=== PATIENT | female | born 1960 | race Caucasian/White ===

== ENCOUNTER → 2018-07-31 10:17 | Outpatient (CLI) | payer BC, SELFPAY ==
[2018-07-31 10:46] LABS: Basophils % 0.7 % (0.1-2.0); Eosinophils # 0.1 K/mm3 (0.0-0.4); Eosinophils % 2.1 % (0.1-12.0); Hematocrit 42.6 % (37.0-47.0); Hemoglobin 14.1 g/dL (12.2-16.2); Lymphocytes # 1.7 K/mm3 (0.7-4.5); Lymphocytes % 31.8 % (10-50); Mean Corpuscular HGB Conc 33.1 g/dL (31.8-35.4); Mean Corpuscular Volume 90.8 fl (81-99); Mean Platelet Volume 8.9 fl (7.4-10.4); Monocytes # 0.3 K/mm3 (0.1-1.0); Monocytes % 5.3 % (1.7-9.3); Neutrophils # 3.2 K/mm3 (1.8-7.8); Neutrophils % 60.1 % (37.0-80.0); Platelet Count 247 K/mm3 (142-424); Red Blood Count 4.69 M/mm3 (4.20-5.40); Red Cell Distribution Width 13.4 % (11.5-17.5); White Blood Count 5.4 K/mm3 (4.8-10.8)
[2018-07-31 11:39] LABS: Alanine Aminotransferase 41 U/L (12-78); Albumin Level 4.2 gm/dL (3.4-5.0); Albumin/Globulin Ratio 1.2 (1.1-1.8); Alkaline Phosphatase 95 U/L (46-116); Anion Gap 14.5 mEq/L (5-15); Aspartate Amino Transferase 23 U/L (15-37); Bilirubin,Total 0.5 mg/dL (0.2-1.0); Blood Urea Nitrogen 13 mg/dL (7-18); Calcium 9.3 mg/dL (8.5-10.1); Carbon Dioxide 31 mmol/L (21.0-32.0); Chloride 101 mmol/L (98-107); Cholesterol 240 mg/dL (140-200); Creatinine,Serum 0.67 mg/dL (0.55-1.02); Estimated Glomerular Filt Rate 90 ml/min (>60); GFR (African American) 109 ML/MIN (>60); Globulin 3.6 gm/dl (1.3-3.2); Glucose 104 mg/dL (74-106); HDL Cholesterol 40 mg/dL (29-89); LDL Cholesterol 151 mg/dL (0-130); Potassium 3.5 mmoL/L (3.5-5.1); Sodium 143 mmol/L (136-145); Thyroid Stimulating Hormone 0.53 uIU/ml (0.358-3.740); Total Protein,Serum 7.8 gm/dL (6.4-8.2); Triglycerides 246 mg/dL (30-200); VLDL Cholesterol 49 mg/dL (0-40)
[2018-08-01 15:36] LABS: Vitamin D 25 Hydroxy 65.6 ng/mL (30.0-100.0)
== END ==
PROVIDERS: Visit Provider Nurse Practitioner Family
DX: R53.83 Other fatigue (principal)
CPT/HCPCS: 36415; 80053; 80061; 82652; 84443; 85025

== ENCOUNTER → 2018-08-10 11:16 | Outpatient (CLI) | payer BC, SELFPAY ==
--- NOTE | 2018-08-10 11:22 | NM_ITS ---
History and Indications: Hypertension, hyperlipidemia, palpitations, fatigue and abnormal EKG Procedure: Patient exercised on Bradly protocol 8 minutes, resting heart rate was 60 bpm resting blood pressure 166/90, with exercise maximum heart rate achieved was 48 bpm which is greater than 85% of the maximum predicted heart rate and a blood pressure was 196/99. Test was started due to shortness of breath and fatigue patient denied any complained of chest pain. Patient has good exercise capacity achieved 10.1mets of workload on treadmill, the blood pressure response to exercise was adequate. Electrocardiogram: Ostomy electrocardiogram showed sinus rhythm nonspecific ST-T changes, with exercise excessive baseline plaque seen, less than 1.[address] segment depression noted from the baseline EKG. The EKG portion of the exercise Myoview is nondiagnostic baseline EKG. Cardiac stress and resting SPECT images: Cardiac stress and resting SPECT images were obtained using technetium 99 Myoview 31.8 mCi stress and 9.7 mCi at rest. Gated SPECT further analysis of segmental wall motion and calculation of the ejection fraction also done. Cardiac stress and resting SPECT images show uniform myocardial activity without segmental perfusion abnormality, computer derived ejection fraction is over 65% with no regional wall motion abnormality, right ventricle is normal size and contractility. Conclusion: 1. The EKG portion of the exercise Myoview is nondiagnostic, patient has good exercise capacity achieved 10.1mets of workload on treadmill, the blood pressure response to exercise was adequate, there was no exercise-induced chest discomfort. 2. Thickened and son reversible ischemia seen, computer derived ejection fraction is over 65% with no regional wall motion abnormality, right ventricle is normal size and contractility.
--- NOTE | 2018-08-10 11:22 | CA_ITS ---
PROCEDURE: 2-D M-mode and color Doppler study INDICATIONS FOR THE TEST: Chest pain COPD Heart Murmur Tobacco Smoking Palpitations Fatigue Syncope Edema+ Hypertension+Diabetes Mellitus Rheumatic Fever SOB AVALOS Obesity Hyperlipidemia+ Family History HD Additional History abn ekg PATIENT INFORMATION HEIGHT:60 WEIGHT:159 GENDER: Female B/P:170/79 2-D/M-MODE INTERPRETATION: 2-D MEASUREMENTS OBSERVED VALUES IN CMS Right Ventricular Dimension (RVDd) 1.9 Interventricular Septum (Thickness)(IVsd) 1.2 Left Ventricular Internal Dimensions(LVIDd) 4.3 Left Ventricular Posterior Wall (Thickness)(LVPWd) 0.6 Aortic Root 2.2 Aortic Cusp Separation 1.5 Left Atrial Dimensions (LAD) 3.3 2D 1. Left atrium is mildly enlarged, left ventricle is normal size, mild concentric left ventricular hypertrophy, visually estimated ejection fraction 55% with no regional wall motion abnormality. 2. The right atrium and right ventricle are normal size and contractility. 3. The aortic, mitral and tricuspid valvular grossly normal. 4. The pulmonic valve is poorly visualized. 5. Trivial pericardial effusion noted. DOPPLER INTERROGATION: Doppler interrogation of the aortic, mitral and tricuspid valve reveals presence of mild mitral and tricuspid regurgitation, tricuspid regurgitation jet velocity is inadequate for calculation of the right ventricular systolic pressure, grade 1 diastolic dysfunction seen without tissue Doppler evidence of raised left atrial pressure. CONCLUSION: 1. Mildly enlarged left atrium, normal left ventricular size, mild concentric left ventricular hypertrophy, visually estimated ejection fraction 55% with no regional wall motion abnormality, grade 1 diastolic dysfunction seen without tissue Doppler evidence of raised left atrial pressure. 2. Mild mitral and tricuspid regurgitation 3. Trivial pericardial effusion noted.
--- NOTE | 2018-08-10 14:11 | HMH.ITSHM ---
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 [asa bisoprolol lazix levothyroxine ]
== END ==
PROVIDERS: PCP Emergency Medicine; Visit Provider Internal Medicine
DX: R60.9 Edema, unspecified (principal)
CPT/HCPCS: 78452; 93017; 93306; A9502

== ENCOUNTER → 2018-09-22 12:44 | Outpatient (CLI) | payer BC, SELFPAY ==
[2018-09-22 17:04] LABS: Alanine Aminotransferase 58 U/L (12-78); Albumin Level 4.2 gm/dL (3.4-5.0); Alkaline Phosphatase 94 U/L (46-116); Anion Gap 13.7 mEq/L (5-15); Aspartate Amino Transferase 33 U/L (15-37); Bilirubin,Direct 0.2 mg/dL (0.0-0.2); Bilirubin,Indirect 0.4 mg/dL (0.0-0.9); Bilirubin,Total 0.6 mg/dL (0.2-1.0); Blood Urea Nitrogen 17 mg/dL (7-18); Calcium 9.5 mg/dL (8.5-10.1); Carbon Dioxide 29 mmol/L (21.0-32.0); Chloride 103 mmol/L (98-107); Cholesterol 176 mg/dL (140-200); Creatinine,Serum 0.77 mg/dL (0.55-1.02); Estimated Glomerular Filt Rate 77 ml/min (>60); GFR (African American) 93 ML/MIN (>60); Glucose 93 mg/dL (74-106); HDL Cholesterol 44 mg/dL (29-89); LDL Cholesterol 96 mg/dL (0-130); Potassium 4.7 mmoL/L (3.5-5.1); Sodium 141 mmol/L (136-145); Total Protein,Serum 7.7 gm/dL (6.4-8.2); Triglycerides 182 mg/dL (30-200); VLDL Cholesterol 36 mg/dL (0-40)
== END ==
PROVIDERS: Visit Provider Urology
DX: I10 Essential (primary) hypertension (principal); E78.2 Mixed hyperlipidemia; I51.9 Heart disease, unspecified; R53.1 Weakness; R53.83 Other fatigue; R60.0 Localized edema; R94.31 Abnormal electrocardiogram [ECG] [EKG]
CPT/HCPCS: 36415; 80048; 80061; 80076

== ENCOUNTER → 2018-11-16 13:29 | Outpatient (CLI) | payer BC, SELFPAY ==
[2018-11-16 14:14] LABS: Chol/HDL Ratio 3.4 (1-3.5); Cholesterol 150 mg/dL (140-200); HDL Cholesterol 44 mg/dL (29-89); LDL Cholesterol 80 mg/dL (0-130); Thyroid Stimulating Hormone 0.15 uIU/ml (0.358-3.740); Triglycerides 130 mg/dL (30-200); VLDL Cholesterol 26 mg/dL (0-40)
[2018-11-18 03:45] LABS: Vitamin D 25 Hydroxy 52.7 ng/mL (30.0-100.0)
== END ==
PROVIDERS: Visit Provider Nurse Practitioner Family
DX: E07.9 Disorder of thyroid, unspecified (principal)
CPT/HCPCS: 80061; 82652; 84443

== ENCOUNTER → 2019-01-18 13:20 | Outpatient (CLI) | payer BC, SELFPAY ==
[2019-01-18 14:01] LABS: Thyroid Stimulating Hormone 1.71 uIU/ml (0.358-3.740)
== END ==
PROVIDERS: Visit Provider Nurse Practitioner Family
DX: E07.9 Disorder of thyroid, unspecified (principal)
CPT/HCPCS: 84443

== ENCOUNTER → 2019-04-18 11:42 | Outpatient (CLI) | payer BC, SELFPAY ==
[2019-04-18 15:14] LABS: Anion Gap 12.6 mEq/L (5-15); Blood Urea Nitrogen 20 mg/dL (7-18); Calcium 9.5 mg/dL (8.5-10.1); Carbon Dioxide 28 mmol/L (21.0-32.0); Chloride 105 mmol/L (98-107); Creatinine,Serum 0.72 mg/dL (0.55-1.02); Estimated Glomerular Filt Rate 83 ml/min (>60); GFR (African American) 100 ML/MIN (>60); Glucose 97 mg/dL (74-106); Potassium 4.6 mmoL/L (3.5-5.1); Sodium 141 mmol/L (136-145)
[2019-04-18 15:46] LABS: Alanine Aminotransferase 43 U/L (12-78); Albumin Level 4.1 gm/dL (3.4-5.0); Alkaline Phosphatase 113 U/L (46-116); Aspartate Amino Transferase 20 U/L (15-37); Bilirubin,Direct 0.1 mg/dL (0.0-0.2); Bilirubin,Indirect 0.4 mg/dL (0.0-0.9); Bilirubin,Total 0.5 mg/dL (0.2-1.0); Chol/HDL Ratio 4.3 (1-3.5); Cholesterol 178 mg/dL (140-200); HDL Cholesterol 41 mg/dL (29-89); LDL Cholesterol 91 mg/dL (0-130); Total Protein,Serum 7.5 gm/dL (6.4-8.2); Triglycerides 229 mg/dL (30-200); VLDL Cholesterol 46 mg/dL (0-40)
== END ==
PROVIDERS: Physician Assistant; Visit Provider Nurse Practitioner Family
DX: E78.5 Hyperlipidemia, unspecified (principal); I10 Essential (primary) hypertension
CPT/HCPCS: 36415; 80048; 80061; 80076

== ENCOUNTER → 2019-08-16 11:05 | Outpatient (CLI) | payer BC, SELFPAY ==
--- NOTE | 2019-08-16 11:09 | XR_ITS ---
PROCEDURE: XR HAND LT MIN 3V CLINICAL INDICATION: pain COMPARISON: No exams were available for comparison FINDINGS: No fracture or dislocation. No lytic or blastic change. There is normal mineralization. There are mild osteoarthritic changes at the 1st metacarpal-carpal joint. Mild osteoarthritis also at the DIP joint of the 2nd finger. Other findings:None. IMPRESSION: Mild osteoarthritis, no acute finding Dictated by: Alexis Downs MD 08/16/2019 16:10 Electronically signed by Alexis Downs MD in [place] 08/16/2019 16:10
--- NOTE | 2019-08-16 11:09 | XR_ITS ---
PROCEDURE: XR HAND RT MIN 3V CLINICAL INDICATION: pain COMPARISON: No exams were available for comparison FINDINGS: No fracture or dislocation. No lytic or blastic change. There is normal mineralization. Mild osteoarthritic change 1st metacarpal-carpal joint Other findings:None. IMPRESSION: Mild osteoarthritis 1st metacarpal-carpal joint otherwise negative Dictated by: Alexis Downs MD 08/16/2019 16:11 Electronically signed by Alexis Downs MD in [place] 08/16/2019 16:11
[2019-08-16 18:09] LABS: Basophils % 0.9 % (0.1-2.0); Eosinophils # 0.2 K/mm3 (0.0-0.4); Eosinophils % 3.5 % (0.1-12.0); Hematocrit 40.4 % (37.0-47.0); Hemoglobin 12.9 g/dL (12.2-16.2); Lymphocytes # 1.9 K/mm3 (0.7-4.5); Lymphocytes % 43.4 % (10-50); Mean Corpuscular HGB Conc 31.8 g/dL (31.8-35.4); Mean Corpuscular Hemoglobin 30.5 pg (27.0-31.2); Mean Platelet Volume 11.1 fl (7.4-10.4); Monocytes # 0.3 K/mm3 (0.1-1.0); Monocytes % 5.7 % (1.7-9.3); Neutrophils % 46.6 % (37.0-80.0); Platelet Count 217 K/mm3 (142-424); Red Blood Count 4.21 M/mm3 (4.20-5.40); White Blood Count 4.3 K/mm3 (4.8-10.8)
[2019-08-16 18:53] LABS: Alanine Aminotransferase 32 U/L (12-78); Albumin Level 3.9 gm/dL (3.4-5.0); Albumin/Globulin Ratio 1.2 (1.1-1.8); Alkaline Phosphatase 95 U/L (46-116); Anion Gap 16.1 mEq/L (5-15); Aspartate Amino Transferase 19 U/L (15-37); Bilirubin,Total 0.5 mg/dL (0.2-1.0); Blood Urea Nitrogen 19 mg/dL (7-18); Calcium 8.8 mg/dL (8.5-10.1); Carbon Dioxide 26 mmol/L (21.0-32.0); Chloride 107 mmol/L (98-107); Chol/HDL Ratio 3.8 (1-3.5); Cholesterol 163 mg/dL (140-200); Estimated Glomerular Filt Rate 73 ml/min (>60); GFR (African American) 89 ML/MIN (>60); Globulin 3.2 gm/dl (1.3-3.2); Glucose 94 mg/dL (74-106); HDL Cholesterol 43 mg/dL (29-89); LDL Cholesterol 78 mg/dL (0-130); Potassium 4.1 mmoL/L (3.5-5.1); Sodium 145 mmol/L (136-145); T4 (Thyroxine) 9.9 ug/dl (4.7-13.3); Thyroid Stimulating Hormone 1.79 uIU/ml (0.358-3.740); Total Protein,Serum 7.1 gm/dL (6.4-8.2); Triglycerides 212 mg/dL (30-200); VLDL Cholesterol 42 mg/dL (0-40)
[2019-08-18 10:19] LABS: Vitamin D 25 Hydroxy 50.2 ng/mL (30.0-100.0)
== END ==
PROVIDERS: PCP Emergency Medicine; Visit Provider Nurse Practitioner Family
DX: M25.50 Pain in unspecified joint (principal); E03.9 Hypothyroidism, unspecified
CPT/HCPCS: 73130; 80053; 80061; 82652; 84436; 84443; 85025

== ENCOUNTER → 2020-07-21 13:01 | Outpatient (CLI) | payer BC, SELFPAY ==
--- NOTE | 2020-07-21 13:07 | XR_ITS ---
PROCEDURE: XR KNEE LT 4V CLINICAL INDICATION: Left knee pain COMPARISON: No exams were available for comparison FINDINGS: No fracture or dislocation. No lytic or blastic change. There is normal mineralization. Minimal osteoarthritic changes medial compartment and patellofemoral joint. Other findings:None. IMPRESSION: Minimal osteoarthritis Dictated by: Alexis Downs MD 07/21/2020 16:01 Alexis Downs MD in [place] 07/21/2020 16:01
== END ==
PROVIDERS: PCP Nurse Practitioner Family; Visit Provider Orthopaedic Surgery
DX: M25.562 Pain in left knee (principal)
CPT/HCPCS: 73564

== ENCOUNTER → 2020-07-25 14:26 | Outpatient (CLI) | payer BC, SELFPAY ==
--- NOTE | 2020-07-25 14:26 | MR_ITS ---
PROCEDURE: MR KNEE LT WO CON CLINICAL INDICATION: Left knee pain Medial left knee pain with swelling COMPARISON: CR XR KNEE LT 4V from 07/21/2020 TECHNIQUE: Routine multiplanar multi echo sequences are performed without gadolinium enhancement. FINDINGS: Cruciate ligaments, collateral ligaments patellar tendon, and quadriceps tendon appear intact. No evidence of meniscal tear. There is trace knee joint effusion with a a Gagnon's cyst present measuring 3.6 1.3 cm. There are minimal osteoarthritic changes of the medial compartment and patellofemoral joint. There is trace knee joint effusion. IMPRESSION: 1. No internal derangement apparent. 2. Minimal osteoarthritic change with knee joint effusion and Gagnon's cyst. Dictated by: Alexis Downs MD 07/28/2020 11:45 Alexis Downs MD in [place] 07/28/2020 11:45
== END ==
PROVIDERS: PCP Emergency Medicine; Visit Provider Orthopaedic Surgery
DX: M25.562 Pain in left knee (principal)
CPT/HCPCS: 73721

== ENCOUNTER → 2020-08-13 14:13 | Outpatient (POV) | payer BC, SELFPAY | DX: Z00.00 Encounter for general adult medical examination without abnormal findings (principal) ==

== ENCOUNTER → 2020-08-18 12:42 | Outpatient (CLI) | payer BC, SELFPAY ==
--- NOTE | 2020-08-18 12:47 | XR_ITS ---
PROCEDURE: XR SHOULDER RT MIN 2V CLINICAL INDICATION: RT shoulder pain Shoulder pain COMPARISON: No exams were available for comparison FINDINGS: No fracture or dislocation. No lytic or blastic change. There is normal mineralization. There is hypertrophic change along the inferior aspect of the a chromium causing subacromial stenosis. Minimal osteoarthritic changes are present at the glenohumeral joint. The AC joint has an unremarkable appearance. Other findings:None. IMPRESSION: Mild degenerative changes with subacromial stenosis Dictated by: Alexis Downs MD 08/18/2020 14:19 Alexis Downs MD in [place] 08/18/2020 14:19
== END ==
PROVIDERS: PCP Nurse Practitioner Family; Visit Provider Orthopaedic Surgery
DX: M25.511 Pain in right shoulder (principal)
CPT/HCPCS: 73030

== ENCOUNTER → 2020-12-01 09:03 | Outpatient (CLI) | payer BC, SELFPAY ==
--- NOTE | 2020-12-01 09:18 | XR_ITS ---
PROCEDURE: XR HAND RT MIN 3V CLINICAL INDICATION: RT hand pain COMPARISON: DX XR HAND LT MIN 3V from 08/16/2019 DX XR HAND RT MIN 3V from 08/16/2019 FINDINGS: No fracture or dislocation. Mild osteopenia is noted. Early degenerative changes with minor osteophyte formation, predominantly proximal and distal interphalangeal joints noted. Degenerative changes of the 1st CMC joint with subchondral cystic changes and sclerosis. Other findings:No significant soft tissue abnormality. IMPRESSION: No acute abnormality. Early osteoarthritis as described above. Dictated by: Gayatri Amaral 12/01/2020 09:46 Gayatri Amaral in [place] 12/01/2020 09:46
== END ==
PROVIDERS: PCP Emergency Medicine; Visit Provider Orthopaedic Surgery
DX: M79.641 Pain in right hand (principal)
CPT/HCPCS: 73130

== ENCOUNTER → 2021-05-06 10:57 | Outpatient (CLI) | payer BC, SELFPAY | PROVIDERS: PCP Emergency Medicine; Visit Provider Urology | DX: R00.2 Palpitations (principal); I10 Essential (primary) hypertension; E78.5 Hyperlipidemia, unspecified | CPT/HCPCS: 93270 ==

== ENCOUNTER → 2021-05-13 13:15 | Outpatient (CLI) | payer BC, SELFPAY ==
--- NOTE | 2021-05-13 13:18 | CA_ITS ---
APPROVED REPORT EXAM: Comprehensive 2D, Doppler, and color-flow Echocardiogram Bone Process Operator: Georgiana Carrera RVT Ht: 5 ft 1 in Wt: 168lbs BSA: 1.75 BP: 166/93 mmHg Indications: SOA,EDEMA,DD,ABN EKG TDS 2D Dimensions LVOT 1.81 cm (M/F) 1.5-2.5 LA Volume 28.20 mL LA Volume Index 16.11 mL/m2 (M/F) 16-34 M-Mode Dimensions RVDd 2.04 cm (0.9-2.6) LA Diam 3.73 cm (1.9-4.0) LVDd 4.83 cm (3.5-5.7) Ao Diam 2.33 cm (2.0-3.7) LVDs 2.79 cm (3.5-5.7) IVSd 0.72 cm (0.6-1.1) PWd 0.54 cm (0.6-1.1) EF (Teich) 73.10% FS 42.20% EDV (Teich) 109.10 mL TAPSE 1.62 (<1.7) ESV (Teich) 29.30 mL LV Diastology E Decel Time 150.00 (160-240 msec) E/A Ratio 0.8 MED E' 10.50 (< 7 cm/sec) E'/MED E' Ratio 7.90 (>14) LAT E' 8.10 (<10 cm/sec) E/LAT E' Ratio 10.23 (>14) Mitral Valve MV E Max Jose Carlos. 83.00 (40-130 cm/s) MV A Velocity 106.00 (40-130 cm/s) E/A Ratio 0.78 MV Decel. Time 150.00 (160-240 ms) MV PHT 44.00 ms Pulmonary Valve PV Peak Velocity 93.00 (50-150 cm/s) Tricuspid Valve TR P. Velocity 294.00 cm/s RAP Estimate 10.00 mmHg RVSP 44.60 mmHg Left Ventricle Left atrium is mildly enlarged, left ventricle is normal size, mild concentric left ventricular hypertrophy, visually estimated ejection fraction 55% with no regional wall motion abnormality, grade 1 diastolic dysfunction seen without tissue Doppler evidence of raise left atrial pressure. Right Ventricle Right atrium and right ventricle normal mildly enlarged with normal contractility. Aortic Valve Aortic valve is minimally thickened and fibrosed, there is no aortic stenosis or aortic insufficiency. Mitral Valve Mitral valve is grossly normal, there is trace mitral regurgitation. Tricuspid Valve Tricuspid grossly normal, there is trace tricuspid regurgitation, calculated right ventricular systolic pressure 34 mmHg. Pulmonic Valve Pulmonic valve is poorly visualized. Great Vessels Aortic root is normal size. Pericardium No significant pericardial effusion noted. Conclusion 1. Mild biatrial enlargement, normal left ventricular size, mild concentric left ventricular hypertrophy, visually estimated ejection fraction 55% with no regional wall motion abnormality, grade 1 diastolic dysfunction seen without tissue Doppler evidence of raise left atrial pressure. 2. Mildly enlarged right ventricle with normal contractility. 3. Trace mitral and tricuspid regurgitation, calculated right ventricular systolic pressure 34 mmHg. 4. No significant pericardial effusion noted. Electronically signed by : Chuck Cuevas MD 05/14/2021 15:09:25
== END ==
PROVIDERS: PCP Emergency Medicine; Visit Provider Urology
DX: R00.2 Palpitations (principal); R94.31 Abnormal electrocardiogram [ECG] [EKG]; I10 Essential (primary) hypertension; E78.5 Hyperlipidemia, unspecified
CPT/HCPCS: 93306

== ENCOUNTER 2021-07-23 11:07 | Emergency (ER) | payer BC, SELFPAY ==
[2021-07-23] VITALS (12 sets, daily range): BP systolic 122–163; BP diastolic 66–116; PULSE 74–97; RESP 16–18; TEMP 36.6; O2SAT 91–100; BMI 30.9
--- NOTE | 2021-07-23 | MR_ITS ---
PROCEDURE: MR HEAD/BRAIN WO CON CLINICAL INDICATION: VERTIGO COMPARISON: No exams were available for comparison TECHNIQUE: Routine multiplanar multi echo sequences are performed without gadolinium enhancement. FINDINGS: No midline shift, mass effect, intracranial hemorrhage, or hydrocephalus. The cerebellopontine angles, cerebellum, and brainstem have an unremarkable appearance. There are scattered small T2 white matter hyperintensities which are nonspecific most commonly seen with microangiopathic changes. The pituitary, optic chiasm, corpus callosum, and craniocervical junction have an unremarkable appearance. No mastoid effusion or sinus air-fluid level. IMPRESSION: No acute intracranial findings. Scattered T2 white matter hyperintensities most commonly seen with ischemic gliotic change from small vessel disease. Differential diagnosis includes demyelinating process however the pattern is not typical for that finding. Please correlate with clinical parameters. Dictated by: Alexis Downs MD 07/23/2021 15:55 Alexis Downs MD in [place] 07/23/2021 15:55
--- NOTE | 2021-07-23 11:21 | HMH.EDGENADL ---
ED Disposition Clinical Impression: Vertigo, Positional lightheadedness Disposition: Home, Self-Care Condition on Discharge: Fair Instructions: Vertigo Additional Instructions: You have been evaluated for positional lightheadedness and vertigo. MRI of the brain is reassuring, but it does show a few abnormalities. Small vessel ischemic changes, possible demyelinating process. Please follow-up with your primary care doctor, Dr. Vasquez. Take meclizine as needed for dizziness. Stay hydrated. Take all other medications as prescribed. Follow-up with a neurologist. Return to the emergency department for any new or worsening symptoms, vision changes, speech difficulty, numbness, weakness, tingling of your arms or legs. Prescriptions: Meclizine HCl [Meclizine 25mg Tab] 25 mg PO Q6 PRN #20 tab PRN Reason: Vertigo Transmission Status: Pending to [id number] Referrals: Dean Vasquez MD [Primary Care Provider] - Margaret Acosta MD [Staff Physician] - Time of Disposition: 16:34 - Critical Care Critical Care Time: No Attestation: On 07/23/21, the high probability of a clinically significant, sudden or life threatening deterioration of the following system(s) required my full and direct attention, intervention and personal management. The time I documented below is in addition to time spent performing reported procedures but includes the following listed in this critical care notation. Medical Decision Making - Medical Records Medical records reviewed: Yes: I reviewed the patient's medical records. - Dariel Inquiry Pt receiving controlled substance: No Vital Signs: 07/23/21 11:07 07/23/21 11:30 07/23/21 12:01 Temperature 97.8 F Temperature Source Oral Pulse Rate 86 88 Pulse Rate [Left Radial] 92 H Respiratory Rate 18 Blood Pressure 141/72 H 123/73 Blood Pressure [Right Arm] 163/87 H Blood Pressure Mean [Right Arm] 112 Blood Pressure Source [Right Arm] Automatic Cuff Blood Pressure Position [Right Arm] Sitting 02 Sat by Pulse Oximetry 100 92 L 91 L Oxygen Delivery Method Room Air 07/23/21 12:30 07/23/21 13:00 07/23/21 13:30 Temperature Temperature Source Pulse Rate 93 H 97 H 94 H Pulse Rate [Left Radial] Respiratory Rate Blood Pressure 133/78 147/70 H 123/69 Blood Pressure [Right Arm] Blood Pressure Mean [Right Arm] Blood Pressure Source [Right Arm] Blood Pressure Position [Right Arm] 02 Sat by Pulse Oximetry 95 95 94 L Oxygen Delivery Method 07/23/21 14:00 07/23/21 15:15 07/23/21 15:45 Temperature Temperature Source Pulse Rate 86 86 74 Pulse Rate [Left Radial] Respiratory Rate Blood Pressure 132/72 122/66 126/69 Blood Pressure [Right Arm] Blood Pressure Mean [Right Arm] Blood Pressure Source [Right Arm] Blood Pressure Position [Right Arm] 02 Sat by Pulse Oximetry 98 96 98 Oxygen Delivery Method - Lab Data Lab Results 07/23/21 11:05: WBC 3.6 L, RBC 4.33, Hgb 13.5, Hct 39.9, MCV 92.4, MCH 31.3 H, MCHC 33.9, RDW 13.1, Plt Count 228, MPV 9.9, Neut % (Auto) 46.0, Lymph % (Auto) 39.5, Mcminn % (Auto) 9.3, Eos % (Auto) 3.8, Baso % (Auto) 1.5, Neut # (Auto) 1.7 L, Lymph # (Auto) 1.4, Mcminn # (Auto) 0.3, Eos # (Auto) 0.1, Baso # (Auto) 0.1 07/23/21 11:05: Sodium 139, Potassium 3.7, Chloride 104, Carbon Dioxide 25, Anion Gap 13.7, BUN 17, Creatinine 0.60, Estimated GFR 101, Est GFR ( Amer) 123, Glucose 139 H, Calcium 9.6, Total Bilirubin 0.3, AST 42 H, ALT 37, Alkaline Phosphatase 91, Total Protein 7.7, Albumin 4.5, Globulin 3.2, Albumin/Globulin Ratio 1.4 Result diagrams: 07/23/21 11:05 07/23/21 11:05 Orders (Tests/Meds): ED MEDICATIONS Generic Name Dose Route Start Last Admin Trade Name Freq PRN Reason Stop Dose Admin Sodium Chloride 10 ml 07/23/21 11:20 Sodium Chloride 0.9% 10ml Vial IV 08/22/21 11:19 NEEDED PRN to Dilute Lorazepam inj Discontinued Medications Generic N
[2021-07-23 11:26] LABS: Basophils # 0.1 K/mm3 (0-0.2); Basophils % 1.5 % (0.1-2.0); Eosinophils # 0.1 K/mm3 (0.0-0.4); Eosinophils % 3.8 % (0.1-12.0); Hematocrit 39.9 % (37.0-47.0); Hemoglobin 13.5 g/dL (12.2-16.2); Lymphocytes # 1.4 K/mm3 (0.7-4.5); Lymphocytes % 39.5 % (10-50); Mean Corpuscular HGB Conc 33.9 g/dL (31.8-35.4); Mean Corpuscular Hemoglobin 31.3 pg (27.0-31.2); Mean Corpuscular Volume 92.4 fl (81-99); Mean Platelet Volume 9.9 fl (7.4-10.4); Monocytes # 0.3 K/mm3 (0.1-1.0); Monocytes % 9.3 % (1.7-9.3); Neutrophils # 1.7 K/mm3 (1.8-7.8); Platelet Count 228 K/mm3 (142-424); Red Blood Count 4.33 M/mm3 (4.20-5.40); Red Cell Distribution Width 13.1 % (11.5-17.5); White Blood Count 3.6 K/mm3 (4.8-10.8)
[2021-07-23 11:28] LABS: Chloride 104 mmol/L (98-107); Potassium 3.7 mmoL/L (3.5-5.1); Sodium 139 mmol/L (136-145)
[2021-07-23 11:30] LABS: Blood Urea Nitrogen 17 mg/dl (7-17); Estimated Glomerular Filt Rate 101 ml/min (>60); GFR (African American) 123 ML/MIN (>60)
[2021-07-23 11:31] LABS: Alanine Aminotransferase 37 U/L (12-78); Albumin Level 4.5 g/dl (3.5-5.0); Albumin/Globulin Ratio 1.4 (1.1-1.8); Alkaline Phosphatase 91 U/L (38-126); Anion Gap 13.7 mEq/L (5-15); Aspartate Amino Transferase 42 U/L (14-36); Bilirubin,Total 0.3 mg/dl (0.2-1.3); Calcium 9.6 mg/dl (8.4-10.2); Carbon Dioxide 25 mmol/L (22.0-30.0); Globulin 3.2 g/dL (1.3-3.2); Glucose 139 mg/dl (74-100); Total Protein,Serum 7.7 g/dl (6.3-8.2)
--- NOTE | 2021-07-23 11:34 | ECG_ITS ---
APPROVED REPORT Exam: Resting ECG HR:80 bpm ECG Measurements Heart Rate 80 AXES OK 158 P 37 QRSd 78 QRS 36 QT 374 T 23 QTc 431 Conclusion Normal sinus rhythm Normal ECG Electronically signed by : Rony Giles MD 07/23/2021 21:37:56
--- NOTE | 2021-07-23 13:21 | PC.NURSE ---
CALLED FOR MRI , WILL BE AROUND 1500 HRS
--- NOTE | 2021-07-23 16:31 | PC.NURSE ---
Spoke with pt's who was requesting an update. He states that they have been up here all day and that he wanted to sign the pt out. Explained to him that we were just waiting on the results of the MRI and he became aggravated with me and told me that he wanted to sign the pt out. Explained to that she was the only one that could sign herself out since she is A&Ox4. Director Of Strategic Sales, Sylwia Lomas to come speak with .
--- NOTE | 2021-07-23 16:38 | PC.NURSE ---
Regular diet tray ordered for pt per MD request.
== END 2021-07-23 17:35 | disposition home or self-care (01) ==
PROVIDERS: Emergency Provider Emergency Medicine; PCP Emergency Medicine
DX: R42 Dizziness and giddiness (principal); E78.5 Hyperlipidemia, unspecified; I10 Essential (primary) hypertension; E03.9 Hypothyroidism, unspecified; Z87.442 Personal history of urinary calculi
CPT/HCPCS: 70551; 80053; 85025; 93005; 96365; 96375; 99283

== ENCOUNTER 2021-08-17 13:05 | Outpatient (RCR) | payer BC, SELFPAY ==
--- NOTE | 2021-08-17 14:01 | HMH.PTOPEV ---
PT Outpatient Evaluation Rehab PT Outpatient Evaluation Start: 08/17/21 13:12 Freq: Status: Active Protocol: Document 08/17/21 13:51 PHORNE (Rec: 08/17/21 14:01 PHORNE [id number]) Electronically Signed By Brian Candelaria, PT 08/17/21 13:51 Outpatient Therapy Subjective History Subjective History Pt is 60 yowf who presents wtih c/o vertigo/dizziness x ~ 1 mo with initial episode which was so severe she required EMS transport to the ED. She had Brain MRI performed which showed no acute abnormalities. She reports less vertigo since that day, but it remains a problem with certain movements , especially turning her head to the R side. She also reports she was previously treated for possible inner ear infection ~ 3 mos ago with oral abx and steroids and had intermittent buzzing in her L ear at that time. Chief Complaint Other Symptom Type Other Symptoms Relieved By Rest/Positioning Symptoms Aggravated By Twisting Prior Functional Limitations None Current Functional Limitations Driving,Sleeping,Recreation Activity Symptom Description Intermittent,Activity Dependent Balance Eval Nystagmus Nystagmus Presence Positional Nystagmus Description Geotropic,Right Torsion, Latency - Immediate Oculomotor Gaze Oculomotor Gaze Nml: Vergence Smooth Pursuit Saccades VOR Cancellation Cover/Uncover Cross Cover Outpatient Therapy Assessment Impairments Problems/Impairmments Impaired Recreational Activities,Impaired Balance, Impaired Self Care/Self Management Prognosis Rehab Potential Good Clinical Impression Consistent with Diagnosis Yes Short Term Goals Number of Weeks 4 Improve Balance Yes Patient to be Ind w/ 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
== END 2021-08-17 13:10 | disposition home or self-care (01) ==
LOC: PT 13:05
PROVIDERS: PCP Family Medicine; Visit Provider Specialist
DX: R42 Dizziness and giddiness (principal)
CPT/HCPCS: 97140; 97163

== ENCOUNTER → 2021-08-17 13:59 | Outpatient (CLI) | payer BC, SELFPAY | PROVIDERS: PCP Family Medicine; Visit Provider Specialist | DX: R42 Dizziness and giddiness (principal); R40.0 Somnolence; R51.9 Headache, unspecified; R53.83 Other fatigue; R06.83 Snoring | CPT/HCPCS: 94762 ==

== ENCOUNTER → 2021-08-26 09:49 | Outpatient (CLI) | payer BC, SELFPAY ==
--- NOTE | 2021-08-26 09:55 | XR_ITS ---
PROCEDURE INFORMATION: Exam: XR Right Knee Exam date and time: 08/26/2021 9:55 AM Age: 60 years old Clinical indication: Pain; Knee; Right; Prior surgery; Surgery date: 6+ months; Additional info: RT knee pain TECHNIQUE: Imaging protocol: XR Right knee. Views: 4 or more views. COMPARISON: No relevant prior studies available. FINDINGS: Bones/joints: Mild tricompartmental degenerative changes within the medial compartment, lateral compartment, and patellofemoral joint. No fracture. Soft tissues: Normal. IMPRESSION: Mild tricompartmental degenerative joint disease.
--- NOTE | 2021-08-26 09:55 | XR_ITS ---
PROCEDURE INFORMATION: Exam: XR Left Knee Exam date and time: 08/26/2021 9:55 AM Age: 60 years old Clinical indication: Pain; Knee; Left; Additional info: Bl knee pain TECHNIQUE: Imaging protocol: XR Left knee. Views: 4 or more views. COMPARISON: MR KNEE LT WO CON 07/25/2020 2:39 PM FINDINGS: Bones/joints: Mild degenerative changes within the medial compartment reflected as mild joint space narrowing. Mild patellofemoral degenerative changes. Soft tissues: Normal. IMPRESSION: 1. Mild patellofemoral degenerative changes. 2. Mild degenerative changes most pronounced medially
== END ==
PROVIDERS: PCP Family Medicine; Visit Provider Orthopaedic Surgery
DX: M25.562 Pain in left knee (principal); M25.561 Pain in right knee
CPT/HCPCS: 73564

== ENCOUNTER → 2021-09-07 14:39 | Outpatient (CLI) | payer BC, SELFPAY ==
--- NOTE | 2021-09-07 14:51 | MR_ITS ---
FINAL REPORT CLINICAL HISTORY: left knee pain; evaluate for a mensical tear. medial sided knee pain. heard a pop in knee [id number] ago. FINDINGS: Multi planar MR imaging was performed of the left knee. The anterior and posterior cruciate ligaments are intact. The quadriceps and patellar tendons are intact. There is a a small tear of the posterior horn of the medial meniscus best seen on coronal image 15 of series 8. The lateral meniscus is intact. The medial and lateral collateral ligaments appear intact. The medial and lateral retinacula appear intact. There is no evidence of bone marrow edema or osteochondral defect. There is a small popliteal cyst measuring 2.3 cm. IMPRESSION: Isolated tear of the posterior horn of the medial meniscus. Small popliteal cyst. Reviewed, Interpreted and Dictated by Clifford Roldan MD Transcribed by Rubin Puentes Authenticated by Clifford Roldan MD on 09/07/2021 04:58:49 PM [facility]
== END ==
PROVIDERS: PCP Family Medicine; Visit Provider Orthopaedic Surgery
DX: M25.562 Pain in left knee (principal)
CPT/HCPCS: 73721

== ENCOUNTER → 2021-09-16 11:02 | Outpatient (CLI) | payer BC, SELFPAY ==
[2021-09-16 12:30] LABS: Bilirubin,Unconjugated 0.5 mg/dL (0.0-1.1)
[2021-09-16 12:31] LABS: Alanine Aminotransferase 37 U/L (12-78); Albumin Level 4.8 g/dl (3.5-5.0); Alkaline Phosphatase 76 U/L (38-126); Aspartate Amino Transferase 43 U/L (14-36); Bilirubin,Direct 0.2 mg/dl (0.0-0.4); Bilirubin,Indirect 0.5 mg/dL (0.0-0.9); Bilirubin,Total 0.7 mg/dl (0.2-1.3); Chol/HDL Ratio 4.2 (1-3.5); Cholesterol 167 mg/dl (140-200); HDL Cholesterol 40 mg/dl (40-60); Total Protein,Serum 7.6 g/dl (6.3-8.2); Triglycerides 178 mg/dl (30-150); VLDL Cholesterol 36 mg/dL (0-40)
[2021-09-16 12:43] LABS: Direct LDL Cholesterol 96.68 mg/dL (100-129)
== END ==
PROVIDERS: PCP Family Medicine; Visit Provider Urology
DX: I10 Essential (primary) hypertension (principal); E78.2 Mixed hyperlipidemia; R60.0 Localized edema; R94.31 Abnormal electrocardiogram [ECG] [EKG]
CPT/HCPCS: 36415; 80061; 80076

== ENCOUNTER → 2021-09-22 13:48 | Outpatient (CLI) | payer BC, SELFPAY | PROVIDERS: PCP Family Medicine; Visit Provider Nurse Practitioner Family | DX: G47.34 Idiopathic sleep related nonobstructive alveolar hypoventilation (principal); G47.33 Obstructive sleep apnea (adult) (pediatric); R06.83 Snoring | CPT/HCPCS: G0399 ==

== ENCOUNTER → 2021-09-24 10:07 | Outpatient (CLI) | payer BC, SELFPAY ==
[2021-09-24 10:50] LABS: Basophils # 0.1 K/mm3 (0-0.2); Basophils % 1.5 % (0.1-2.0); Eosinophils # 0.2 K/mm3 (0.0-0.4); Hematocrit 42.6 % (37.0-47.0); Hemoglobin 14.3 g/dL (12.2-16.2); Lymphocytes # 1.7 K/mm3 (0.7-4.5); Lymphocytes % 33.5 % (10-50); Mean Corpuscular HGB Conc 33.5 g/dL (31.8-35.4); Mean Corpuscular Hemoglobin 32.1 pg (27.0-31.2); Mean Corpuscular Volume 95.8 fl (81-99); Mean Platelet Volume 10.7 fl (7.4-10.4); Monocytes # 0.3 K/mm3 (0.1-1.0); Monocytes % 6.1 % (1.7-9.3); Neutrophils # 2.8 K/mm3 (1.8-7.8); Neutrophils % 55.9 % (37.0-80.0); Platelet Count 237 K/mm3 (142-424); Red Blood Count 4.45 M/mm3 (4.20-5.40)
--- NOTE | 2021-09-24 11:13 | XR_ITS ---
FINAL REPORT CLINICAL HISTORY: . pre-op, non smoker, no sx to chest FINDINGS: Two views of the chest were obtained. The heart size and pulmonary vascularity are within normal limits. The mediastinum is normal. No acute pulmonary abnormality is identified. There is no pneumothorax. The bony thorax is intact. IMPRESSION: No active cardiopulmonary disease. Reviewed, Interpreted and Dictated by Edward Juárez III, MD Transcribed by Rubin Puentes Authenticated by Edward Juárze III, MD on 09/24/2021 12:16:12 PM [facility]
--- NOTE | 2021-09-24 11:31 | ECG_ITS ---
APPROVED REPORT Exam: Resting ECG HR:79 bpm ECG Measurements Heart Rate 79 AXES MI 151 P 45 QRSd 85 QRS 66 QT 362 T -5 QTc 397 Conclusion SINUS RHYTHM LOW QRS VOLTAGE IN PRECORDIAL LEADS [QRS DEFLECTION < 1.0 mV IN CHEST LEADS] NONSPECIFIC T-WAVE ABNORMALITY ABNORMAL ECG UNCONFIRMED REPORT Electronically signed by : Rony Giles MD 09/24/2021 21:13:04
[2021-09-24 11:48] LABS: Alanine Aminotransferase 39 U/L (12-78); Albumin/Globulin Ratio 1.8 (1.1-1.8); Alkaline Phosphatase 81 U/L (38-126); Anion Gap 11.3 mEq/L (5-15); Aspartate Amino Transferase 42 U/L (14-36); Bilirubin,Total 0.4 mg/dl (0.2-1.3); Blood Urea Nitrogen 14 mg/dl (7-17); Calcium 9.9 mg/dl (8.4-10.2); Carbon Dioxide 32 mmol/L (22.0-30.0); Chloride 102 mmol/L (98-107); Estimated Glomerular Filt Rate 85 ml/min (>60); GFR (African American) 103 ML/MIN (>60); Globulin 2.8 g/dL (1.3-3.2); Glucose 98 mg/dl (74-100); Potassium 4.3 mmoL/L (3.5-5.1); Sodium 141 mmol/L (136-145); Total Protein,Serum 7.8 g/dl (6.3-8.2)
== END ==
PROVIDERS: PCP Family Medicine; Visit Provider Orthopaedic Surgery
DX: Z01.810 Encounter for preprocedural cardiovascular examination (principal); S83.242D Other tear of medial meniscus, current injury, left knee, subsequent encounter
CPT/HCPCS: 36415; 71046; 80053; 85025; 93005

== ENCOUNTER → 2021-09-29 10:21 | Outpatient (CLI) | payer BC, SELFPAY | PROVIDERS: PCP Family Medicine; Visit Provider Orthopaedic Surgery | DX: Z01.812 Encounter for preprocedural laboratory examination (principal); Z11.52 Encounter for screening for COVID-19; S83.242D Other tear of medial meniscus, current injury, left knee, subsequent encounter | CPT/HCPCS: C9803; U0003; U0005 ==

== ENCOUNTER 2021-10-01 10:20 | Day surgery (SDC) | payer BC, SELFPAY ==
[2021-09-28 10:08] VITALS: BMI 31.5
[2021-10-01] VITALS (10 sets, daily range): BP systolic 123–144; BP diastolic 68–89; PULSE 78–100; RESP 14–18; TEMP 36.2–43; O2SAT 94–99
--- NOTE | 2021-10-01 11:51 | P.PN_ITS ---
[facility] Anesthesia Checklist - Patient Identification Patient Identification: Arm Band - Structural Data Admitted From: Home Planned Operative Procedure/s: Left Knee Arthroscopy, Medial Meniscectomy and Debridement Consent for Planned Operative Procedure(s) Verified: Yes Verified Documents: Surgical Consent, History and Physical - NPO Status Verified Time NPO: 00:00 - Additional verifications Anesthesia Reactions: No Hx Blood Transfusions: No Blood Transfusion Reaction: No - Airway Assessment C-Spine Mobility Assessed: Yes (mp2) TMJ Mobility Assessed: Yes Dentition: Good Dentition - Neurological Assessment Level of Consciousness: Awake, Alert - Anesthesia Plan Anesthesia Risk discussed: Yes Anesthesia Plan: Verified ASA Class: II Anesthesia Type: General [facility] History I have reviewed the patient's past medical history: Yes Medical History: Reports:: Hyperlipidemia, Hypertension, Kidney Stones, Migraine Denies:: Cancer, Diabetes Mellitus Type 1, Diabetes Mellitus Type 2, Internal Pacemaker, MRSA, Seizures *Have you ever received a pneumonia vaccine?: No *Have you received a flu vaccine this season?: No Other Medical History: Reports: Hypothyroidism. Denies: Blood Transfusion Reaction Anesthesia experience/problems:: nac Laterality Cases: Right: Arthroscopy Knee, Other Other Surgeries: Yes: Appendectomy, Cholecystectomy, Colonoscopy, Tubal Ligation. No: Pacemaker Amputation: No Fractures: No - *Social History Last grade of school completed: High school graduate Smoking Status: Never smoker Alcohol Intake: never Substance Use Type: denies use *Occupational Status:: retired Housing: house Household Members: family *Travel in the last 8 weeks: None Family Hx:: Diabetes
--- NOTE | 2021-10-01 14:48 | SUR.OPER ---
1448-updated family at this time
--- NOTE | 2021-10-01 15:04 | P.PN_ITS ---
[facility] Anesthesia Record Part I Intake, IV Amount: 1,000 Estimated blood loss (mL): 10 Urine output (mL): 0 Blood Pressure: 132/82 SaO2: 96 Pulse Rate: 100 Respiratory Rate: 16 Temperature: 98.6 F Patient is:: Drowsy, Stable Stable to PACU at:: 15:00
--- NOTE | 2021-10-01 15:33 | SUR.PHASEI ---
1531 Pt left in stable condition. Detailed report provided to AMISHA Armijo.
--- NOTE | 2021-10-01 15:51 | HMH.OPNOTE ---
Date of procedure: 10/01/21 Pre-op Diagnosis:: 1. Medial meniscus tear left knee 2. Osteoarthritis, left knee Post-op Diagnosis:: 1. Complex degenerative tear, Medial meniscal, left knee 2. Osteoarthritis, left knee 3. Pathological medial plica, left knee 4. Discoid lateral meniscus, left knee Procedure performed:: 1. Examination of left knee under anesthesia 2. Partial medial meniscectomy, left knee 3. Chondroplasty, left knee 4. Resection of medial plica, left knee Surgeon:: Mitch Amaral MD Agriculture Science Teacher(s):: Laura Watkins PA-C WASHHOUSE HAND:: William Feeomid Anesthesia: LMA Estimated blood loss (mL): 0 Clinical Note:: The patient is a 60-year-old female with left knee pain following an injury that is unresponsive to conservative management and evidence of a medial meniscal tear and early arthritic changes on imaging. Clinically her symptoms are consistent with the above diagnosis. Resection of the torn medial meniscus, chondroplasty and debridement is indicated to relieve the pain and improve function of the knee. Please refer to my office note for full details. Operative findings:: Examination of the left knee under anesthesia, showed a stable knee joint. There is a small amount of knee joint effusion. Knee range of motion is from 0-130? of flexion. Operative findings showed diffuse grade 2 degenerative changes over the patellar articular surface and grade 3-4 changes over the trochlear groove. Grade 2 degenerative changes noted over the medial compartment. A discoid lateral meniscus is noted which is intact; the lateral compartment is well preserved. The medial meniscus had a complex degenerative tear involving the body and posterior horn. The anterior and posterior cruciate ligaments were intact. A thickened and pathological medial plica was noted. Mild synovitis was noted. Operative note:: On the day of the procedure the patient and her were met in the preoperative area and positively identified. A physical examination was performed and documented. The limb was marked and initialed by me. I have again discussed the diagnosis, management options including both nonsurgical and surgical. I have discussed the proposed surgical procedure, risks and benefits and alternatives in detail. The complications discussed include but are not limited to infection, injury to nerves and blood vessels, injury to the ligaments and tendons, knee stiffness, arthrofibrosis, incomplete relief, incomplete functional recovery, DVT, PE, CRPS, complications related to anesthesia including heart attack, stroke and even . I have also discussed about the likely need for further surgery in future. I told her that there were no guarantees with surgery; she could be no better or even worse. We also discussed the postoperative recovery and rehabilitation that might be needed. I believe the patient to be well informed with regard to the proposed surgery. I told her that it would take few months for full recovery of the knee after surgery. She expressed a full understanding and wished to proceed with the planned surgery. Patient understood the risks, agreed to proceed with surgery, and no guarantees or assurances were given or implied. Patient was brought to the operating room and placed supine on the operating table. All the bony prominences were appropriately padded. A general anesthesia was administered by the human resources team member. A well-padded tourniquet cuff was placed over the left upper thigh. Examination of the left knee under anesthesia was performed. A small amount of knee effusion was noted. Knee range of motion was 0-130 degrees of flexion. Knee joint is noted to be ligamentously stable. The left knee was then prepped and draped in the usual sterile fashion. A preprocedure timeout was performed as per protocol. Administration of prophylactic antibiotics was confirmed with the human resources team member. The arthroscopic portals were marked on the skin. The limb was exsanguinated with Esm
[2021-10-02 09:48] VITALS: BP 144/89; PULSE 85; TEMP 36.2
--- NOTE | 2021-10-02 09:48 | P.PN_ITS ---
[facility] Anesthesia Record Part II Discharge Time: 15:32 Destination: Surgical Day Care (OP Surgery) PACU nurse assessment reviewed?: Yes Patient Condition:: Good Anesthesia Complications:: None Swallowing reflex intact?: Yes Cyanosis?: No Blood Pressure: 144/89 Pulse Rate: 85 Temperature: 97.2 F Mental Status: Alert & Oriented Pain level:: 0 Nausea and/or vomitting:: None Intake, IV Amount: 0
== END 2021-10-01 16:00 | disposition home or self-care (01) ==
LOC: OR 10:23
PROVIDERS: PCP Family Medicine; Visit Provider Orthopaedic Surgery
PROC: (CPT 29870; principal; 2021-10-01 12:00)
DX: M17.12 Unilateral primary osteoarthritis, left knee (principal); M25.562 Pain in left knee; S83.242A Other tear of medial meniscus, current injury, left knee, initial encounter; I10 Essential (primary) hypertension; E03.9 Hypothyroidism, unspecified
CPT/HCPCS: 29881; 29879; 96374; J2405

== ENCOUNTER 2021-11-23 14:14 | Emergency (ER) | payer BC, SELFPAY ==
--- NOTE | 2021-11-23 16:55 | HMH.EDUTC ---
[facility] Disposition Clinical Impression: Acute bronchitis Qualifiers: Bronchitis organism: unspecified organism Qualified Code(s): J20.9 - Acute bronchitis, unspecified Disposition: Home, Self-Care Condition on Discharge: Good Instructions: Acute Bronchitis, DI for Acute Bronchitis Additional Instructions: Drink plenty of fluids. Take tylenol or ibuprofen for pain or fever. Take the medications as directed. Follow up with your regular doctor. GO TO THE ER FOR ANY WORSENING SYMPTOMS Don't start the oral steroids until tomorrow, since you had the shot here today. The cough medication (promethazine dm) will make you drowsy, so don't drive or operate heavy machinery after taking it. Prescriptions: Promethazine/Dextromethorphan [Promethazine-Dm Syrup] 5 ml PO Q6HP PRN #240 ml PRN Reason: Cough Transmission Status[facility] Amoxicillin/Potassium Clav [Amox-Clav 875-125 mg Tablet] 1 tab PO BID #20 tab Transmission Status: [facility] Benzonatate [Benzonatate 100mg cap] 100 mg PO TIDP PRN #30 cap PRN Reason: Cough Transmission Status: [facility] methylPREDNISolone [Medrol] 4 mg PO DIRECTED 6 Days #21 packet Transmission Status: [facility] Referrals: Natanael Akbar MD [Primary Care Provider] - Time of Disposition: 17:07 Medical Decision Making - Medical Records Medical records reviewed: No: I reviewed the patient's medical records. - Dariel Inquiry Pt receiving controlled substance: No Vital Signs: 11/23/21 17:15 11/23/21 17:18 Temperature 98.4 F 98.4 F Temperature Source Oral Oral Pulse Rate 71 Pulse Rate [Left Radial] 79 Respiratory Rate 17 17 Blood Pressure 171/81 H Blood Pressure [Right Arm] 176/78 H Blood Pressure Mean [Right Arm] 110 02 Sat by Pulse Oximetry 98 Oxygen Delivery Method Room Air - Lab Data Lab results reviewed: Yes: I reviewed the patient's lab results. Orders (Tests/Meds): ED MEDICATIONS Discontinued Medications Generic Name Dose Route Start Last Admin Trade Name Freq PRN Reason Stop Dose Admin Ceftriaxone Sodium 1 gm 11/23/21 17:05 11/23/21 17:08 Ceftriaxone 1gm Vial IM 11/23/21 17:06 1 gm ONCE ONE Administration Lidocaine HCl 0 ml 11/23/21 17:05 11/23/21 17:09 Lidocaine 1% 5ml Pf Vial IM 11/23/21 17:06 1 ml ONCE ONE Administration Methylprednisolone Sodium Succinate 125 mg 11/23/21 17:05 11/23/21 17:09 Methylprednisolone Sod Succ 125mg Vial IM 11/23/21 17:06 125 mg ONCE ONE Administration [facility] HPI - General Stated complaint: cough Time Seen by Provider: 11/23/21 16:55 - History of Present Illness Provider Complaint: She states that for the past 1 week she has had a cough, chest congestion and productive cough with yellowish sputum. - Related Data Home Medications Medication Instructions Recorded Confirmed multivitamin 1 tab PO DAILY 07/24/18 10/16/21 Amlodipine Besylate 5 mg PO DAILY 09/28/21 10/16/21 Aspirin [Low Dose Aspirin EC] 81 mg PO DAILY 09/28/21 10/16/21 Atorvastatin Calcium [Lipitor 20mg 20 mg PO DAILY 09/28/21 10/16/21 Tab] Furosemide [Furosemide 40MG tAB*] 40 mg PO DAILY 09/28/21 10/16/21 Nebivolol HCl [Bystolic] 2.5 mg PO DAILY 09/28/21 10/16/21 Previous Rx's Medication Instructions Recorded hydrocodone 5 mg-acetaminophen 325 1 tab PO Q6H PRN #14 tab 10/01/21 mg tablet levothyroxine 112 mcg tablet 112 mcg PO DAILY #90 tab 10/16/21 nystatin 100,000 unit/gram topical 1 applic TOPICAL DAILY #30 g 10/16/21 cream Amoxicillin/Potassium Clav 1 tab PO BID #20 tab 11/23/21 [Amox-Clav 875-125 mg Tablet] Benzonatate [Benzonatate 100mg 100 mg PO TIDP PRN #30 cap 11/23/21 cap] Promethazine/Dextromethorphan 5 ml PO Q6HP PRN #240 ml 11/23/21 [Promethazine-Dm Syrup] methylPREDNISolone [Medrol] 4 mg PO DIRECTED 6 Days #21 11/23/21 packet Allergies A
[2021-11-23 17:15] VITALS: BP 176/78; PULSE 79; RESP 17; TEMP 36.9; O2SAT 98; BMI 31.7
[2021-11-23 17:18] VITALS: BP 171/81; PULSE 71; RESP 17; TEMP 36.9; O2SAT 99
== END 2021-11-23 17:24 | disposition home or self-care (01) ==
PROVIDERS: Emergency Provider Nurse Practitioner Family; PCP Family Medicine
DX: J20.9 Acute bronchitis, unspecified (principal); I10 Essential (primary) hypertension; E78.5 Hyperlipidemia, unspecified; E03.9 Hypothyroidism, unspecified
CPT/HCPCS: 96372; 99213; G0463; J0696

== ENCOUNTER 2022-04-05 13:01 | Emergency (ER) | payer BC, SELFPAY ==
[2022-04-05 13:20] VITALS: BP 130/82; PULSE 72; RESP 17; TEMP 36.6; O2SAT 98; BMI 33.0
--- NOTE | 2022-04-05 13:41 | HMH.EDUTC ---
[facility] [place] Disposition Clinical Impression: Otitis media Qualifiers: Otitis media type: unspecified Laterality: right Qualified Code(s): H66.91 - Otitis media, unspecified, right ear Disposition: Home, Self-Care Condition on Discharge: Good Instructions: Middle Ear Infection, DI for Vertigo, Amoxicillin Additional Instructions: Take medication as prescribed Follow up with your Family Doctor if your symptoms do not improve or immediately if any worsening of symptoms Return if needed Straight to ER if any life threatening symptoms Prescriptions: Amoxicillin [Amoxicillin 500mg Cap] 500 mg PO TID #30 cap Transmission Status: Pending to [id number] methylPREDNISolone [Medrol 4mg tab] 4 mg PO DIRECTED #21 tab Transmission Status: Pending to [facility] Referrals: Natanael Akbar MD [Primary Care Provider] - As needed Time of Disposition: 13:54 Medical Decision Making - Dariel Inquiry Pt receiving controlled substance: No Dariel was queried for this patient: No Vital Signs: 04/05/22 13:20 Temperature 97.8 F Temperature Source Oral Pulse Rate [Right Brachial] 72 Respiratory Rate 17 Blood Pressure [Right Arm] 130/82 Blood Pressure Mean [Right Arm] 98 Blood Pressure Source [Right Arm] Automatic Cuff Blood Pressure Position [Right Arm] Sitting 02 Sat by Pulse Oximetry 98 Oxygen Delivery Method Room Air Medical Decision Narrative: reports has meclizine at home [facility] [place] HPI - General Stated complaint: possible vertigo, ear infection Time Seen by Provider: 04/05/22 13:41 Mode of Arrival: Ambulatory Source of Information: Patient Limitations: No Limitations Description of Symptoms (Recalled from Triage Doc. by RN): PATIENT C/O VERTIGO AND PRESSURE IN EARS SINCE TUESDAY HEENT Symptoms (Recalled from RN notes): Yes Resp Symptoms (Recalled from RN notes): No Skin Symptoms (Recalled from RN notes): No MS Symptoms (Recalled from RN notes): No Functional Status (Recalled from RN notes): WNL - History of Present Illness Provider Complaint: Patient states that she has been having pain and pressure in her ears for several days States that this morning she got up and noticed she was starting to have Vertigo again States that she has done this before and had to do physical therapy for it because Meclizine makes her dizziness worse State that she wanted to come in and get seen for her ears so she can get them cleared up first and if not better she will see physical therapy again - Related Data Home Medications Medication Instructions Recorded Confirmed multivitamin 1 tab PO DAILY 07/24/18 03/17/22 Aspirin [Low Dose Aspirin EC] 81 mg PO DAILY 09/28/21 03/17/22 Previous Rx's Medication Instructions Recorded levothyroxine 112 mcg tablet 112 mcg PO DAILY #90 tab 10/16/21 atorvastatin 20 mg tablet 20 mg PO DAILY #90 tab 03/17/22 furosemide 40 mg tablet 40 mg PO DAILY #90 tab 03/17/22 nebivolol 5 mg tablet 5 mg PO DAILY #90 tab 03/17/22 potassium chloride 20 mEq 20 meq PO DAILY #90 tab 03/17/22 tablet,extended release(part/cryst) Amoxicillin [Amoxicillin 500mg 500 mg PO TID #30 cap 04/05/22 Cap] methylPREDNISolone [Medrol 4mg 4 mg PO DIRECTED #21 tab 04/05/22 tab] Allergies Allergy/AdvReac Type Severity Reaction Status Date / Time No Known Allergies Allergy Verified 03/17/22 10:58 - Worker's Comp Is this a Worker's Comp case?: No [facility] History - Hepatitis A Screen Attestation statement:: This patient has been screened for Hepatitis A risk factors. I have reviewed the patient's past medical history: Yes Medical History: Reports:: Hyperlipidemia, Hypertension, Kidney Stones, Migraine Denies:: Cancer, Diabetes Mellitus Type 1, Diabetes Mellitus Type 2, Internal Pacemaker, MRSA, Seizures Other Medical History: Reports: Arthritis, Hypothyroidism, Thyroid Disease, Other. Denies: Blood Transfusion Reaction Laterality Cases: Right: Arthroscopy Knee, Other Other Surg
[2022-04-05 13:55] VITALS: BP 130/82; PULSE 72; RESP 17; TEMP 36.6; O2SAT 98
== END 2022-04-05 13:58 | disposition home or self-care (01) ==
PROVIDERS: Emergency Provider Nurse Practitioner; PCP Family Medicine
DX: H66.91 Otitis media, unspecified, right ear (principal); R42 Dizziness and giddiness
CPT/HCPCS: 99212; G0463

== ENCOUNTER → 2022-04-19 06:12 | Outpatient (CLI) | payer BC, SELFPAY ==
[2022-04-19 19:10] LABS: Thyroid Stimulating Hormone 0.65 uIU/mL (0.465-4.68)
== END ==
PROVIDERS: PCP Family Medicine; Visit Provider Family Medicine
DX: E03.9 Hypothyroidism, unspecified (principal)
CPT/HCPCS: 84443

== ENCOUNTER 2022-04-26 13:03 | Outpatient (RCR) | payer BC, SELFPAY ==
--- NOTE | 2022-04-26 14:11 | HMH.PTOPEV ---
PT Outpatient Evaluation Rehab PT Outpatient Evaluation Start: 04/26/22 13:12 Freq: Status: Active Protocol: Document 04/26/22 14:02 PHORNE (Rec: 04/26/22 14:11 PHORNE [id number]) Electronically Signed By Brian Candelaria, PT 04/26/22 14:02 Outpatient Therapy Subjective History Subjective History Pt is 61 yowf who presents with c/o vertigo x ~ 1 mo after developing an inner ear infection. AFter she was treated for her inner ear infection her symptoms remained. She reports vertigo with elizabeth gfrom L to R in bed, looking up, and bending over at the waist. She reports early onset of symptoms with quick relief. She also reports mild nausea associated with the vertigo. She does have hx of HTN and migraines. Chief Complaint Other Symptoms Relieved By Rest/Positioning Prior Functional Limitations None Current Functional Limitations Housework,Sleeping Symptom Description Activity Dependent Level of pain today (0-10) 0 Pain scale - at its worst (0-10) 0 Balance Eval Nystagmus Nystagmus Presence Positional Nystagmus Description Right Direction,Latency - Immediate Oculomotor Gaze Oculomotor Gaze Nml: Vergence Smooth Pursuit Saccades VOR Cancellation Cover/Uncover Cross Cover Outpatient Therapy Assessment Impairments Problems/Impairmments Impaired Household Care, Impaired Balance,Impaired Self Care/Self Management Prognosis Rehab Potential Good Clinical Impression Consistent with Diagnosis Yes Short Term Goals Number of Weeks 2 Improve Ability to Bend Yes: without vertigo 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
== END 2022-04-26 13:05 | disposition home or self-care (01) ==
LOC: PT 13:03
PROVIDERS: PCP Family Medicine; Visit Provider Family Medicine
DX: R42 Dizziness and giddiness (principal)
CPT/HCPCS: 97140; 97163

== ENCOUNTER 2022-06-11 14:05 | Emergency (ER) | payer BC, SELFPAY ==
--- NOTE | 2022-06-11 14:20 | EXP.UTC ---
Discharge Plan Disposition Patient Disposition: Home, Self-Care Condition: Good Prescriptions Prescriptions: New triamcinolone acetonide 0.025 % cream 1 applic topical DAILY Qty: 80 0RF methylprednisolone 4 mg Tablets,Dose Pack 4 mg PO DIRECTED Qty: 21 0RF No Action Antivert 50 mg tablet 50 mg PO BID PRN (Reason: dizziness) Qty: 60 3RF ondansetron HCl 4 mg tablet 4 mg PO TID PRN (Reason: nausea and vomiting) Qty: 30 3RF multivitamin tablet 1 tab PO DAILY nebivolol [Bystolic] 5 mg tablet 5 mg PO DAILY Qty: 90 3RF potassium chloride [Klor-Con M20] 20 mEq tablet,ER particles/crystals 20 meq PO DAILY Qty: 90 3RF furosemide 40 mg tablet 40 mg PO DAILY Qty: 90 3RF atorvastatin 20 mg tablet 20 mg PO DAILY Qty: 90 3RF levothyroxine 112 mcg tablet 112 mcg PO DAILY Qty: 90 3RF Rx Instructions: Take 1 tablet by mouth once daily aspirin 81 MG tablet,delayed release (DR/EC) 81 mg PO DAILY Referrals Follow up/Referrals: Natanael Akbar MD [Primary Care Provider] - See instructions Activity Restrictions/Add. Instructions Additional Instructions/Restrictions: Try to identify and avoid contact with the offending substance (poison fabiola). Don't start the oral steroids until tomorrow. Don't put the topical steroids (triamcinolone) on your face or your groin. Follow up with your regular doctor. GO TO THE ER FOR ANY WORSENING SYMPTOMS OR CONCERNS Clinical Impressions Clinical Impression: Contact dermatitis Stand Alone Forms Stand Alone Forms: Work/School Release Instructions Patient Instructions: Contact Dermatitis, DI for Contact Dermatitis Discharge ED Provider: Kurt Nur [facility] General Stated complaint: Pressure in ears, rash on both arms Time Seen by Provider: 06/11/22 14:20 History of Present Illness Provider Complaint: She has a itchy rash on her bilateral forearms, face and neck. She has been in contact with poison fabiola. Related Data Home Medications Medication Instructions Recorded Confirmed multivitamin 1 tab PO DAILY Supplement 07/24/18 04/19/22 aspirin 81 mg tablet,delayed 81 mg PO DAILY BLO THINNER 09/28/21 04/19/22 release Previous Rx's Medication Instructions Recorded levothyroxine 112 mcg tablet 112 mcg PO DAILY HYPOTHYROIDISM 10/16/21 #90 tabs atorvastatin 20 mg tablet 20 mg PO DAILY Cholesterol #90 tabs 03/17/22 furosemide 40 mg tablet 40 mg PO DAILY SWELLING #90 tabs 03/17/22 nebivolol 5 mg tablet (Bystolic) 5 mg PO DAILY #90 tabs 03/17/22 potassium chloride 20 mEq 20 meq PO DAILY #90 tabs 03/17/22 tablet,extended release(part/cryst) (Klor-Con M) meclizine 50 mg tablet (Antivert) 50 mg PO BID PRN dizziness #60 tabs 04/19/22 ondansetron HCl 4 mg tablet 4 mg PO TID PRN nausea and 04/19/22 vomiting #30 tabs methylprednisolone 4 mg tablets in 4 mg PO DIRECTED #21 tabs 06/11/22 a dose pack triamcinolone acetonide 0.025 % 1 applic topical DAILY #80 grams 06/11/22 topical cream Allergies Allergy/AdvReac Type Severity Reaction Status Date / Time No Known Allergies Allergy Verified 06/11/22 14:49 PFSH [facility] Medical History Chest pain Fatigue SOB (shortness of breath) Social History Smoking Status: Never smoker alcohol intake: never substance use type: denies use current occupational status: other Travel in the last 8 weeks: None household members: family housing: house caffeine: Yes ROS Obtained: Yes All systems reviewed & no additional complaints except as documented Constitutional Constitutional: Denies chills and Denies fever(s) Eyes Eyes: Denies eye discharge ENT Ears, Nose, Mouth, and Throat: Denies dizziness, Denies otalgia and Denies sore throat Cardiovascular Cardiovascular: Denies chest pain Respiratory Respiratory: Denies shortness of breat
[2022-06-11 14:47] VITALS: BP 178/95; PULSE 76; RESP 16; TEMP 37; O2SAT 97; BMI 31.2
[2022-06-11 15:38] VITALS: BP 178/95; PULSE 76; RESP 16; TEMP 37
== END 2022-06-11 15:41 | disposition home or self-care (01) ==
PROVIDERS: Emergency Provider Nurse Practitioner Family; PCP Family Medicine
DX: L25.9 Unspecified contact dermatitis, unspecified cause (principal); Z79.82 Long term (current) use of aspirin; Z79.899 Other long term (current) drug therapy
CPT/HCPCS: 96372; 99212; G0463

== ENCOUNTER → 2023-05-04 11:52 | Outpatient (CLI) | payer BC, SELFPAY ==
[2023-05-04 12:47] LABS: Basophils % 0.8 % (0.1-2.0); Eosinophils # 0.1 K/mm3 (0.0-0.4); Eosinophils % 2.5 % (0.1-12.0); Hemoglobin 13.8 g/dL (12.2-16.2); Lymphocytes # 1.8 K/mm3 (0.7-4.5); Lymphocytes % 36.7 % (10-50); Mean Corpuscular HGB Conc 32.9 g/dL (31.8-35.4); Mean Corpuscular Hemoglobin 30.9 pg (27.0-31.2); Mean Corpuscular Volume 93.9 fl (81-99); Mean Platelet Volume 10.5 fl (7.4-10.4); Monocytes # 0.3 K/mm3 (0.1-1.0); Monocytes % 6.5 % (1.7-9.3); Neutrophils # 2.7 K/mm3 (1.8-7.8); Neutrophils % 53.5 % (37.0-80.0); Platelet Count 211 K/mm3 (142-424); Red Blood Count 4.47 M/mm3 (4.20-5.40); Red Cell Distribution Width 13.1 % (11.5-17.5)
[2023-05-04 13:37] LABS: Alanine Aminotransferase 34 U/L (12-78); Albumin Level 4.5 g/dl (3.5-5.0); Alkaline Phosphatase 98 U/L (38-126); Anion Gap 14.8 mEq/L (5-15); Aspartate Amino Transferase 33 U/L (14-36); Bilirubin,Total 0.4 mg/dl (0.2-1.3); Blood Urea Nitrogen 18 mg/dl (7-17); Calcium 9.4 mg/dl (8.4-10.2); Carbon Dioxide 28 mmol/L (22.0-30.0); Chloride 106 mmol/L (98-107); Chol/HDL Ratio 3.8 (1-3.5); Cholesterol 150 mg/dl (140-200); Estimated Glomerular Filt Rate 101 ml/min (>60); GFR (African American) 122 ML/MIN (>60); Glucose 93 mg/dl (74-100); HDL Cholesterol 40 mg/dl (40-60); Magnesium 2.2 mg/dl (1.6-2.3); Potassium 4.8 mmoL/L (3.5-5.1); Sodium 144 mmol/L (136-145); Total Protein,Serum 7.4 g/dl (6.3-8.2); Triglycerides 150 mg/dl (30-150); VLDL Cholesterol 30 mg/dL (0-40)
[2023-05-04 13:48] LABS: Direct LDL Cholesterol 80.26 mg/dL (100-129)
[2023-05-04 13:56] LABS: Free T4 (Free Thyroxine) 0.99 ng/dl (0.78-2.19)
[2023-05-04 16:16] LABS: Bilirubin,Unconjugated 0.6 mg/dL (0.0-1.1)
[2023-05-04 17:11] LABS: Bilirubin,Indirect 0.5 mg/dL (0.0-0.9)
[2023-05-04 21:49] LABS: Thyroid Stimulating Hormone 0.75 uIU/mL (0.465-4.68)
== END ==
PROVIDERS: PCP Family Medicine; Visit Provider Physician Assistant
DX: I10 Essential (primary) hypertension (principal); E03.9 Hypothyroidism, unspecified; E78.5 Hyperlipidemia, unspecified; I51.89 Other ill-defined heart diseases; R94.31 Abnormal electrocardiogram [ECG] [EKG]
CPT/HCPCS: 36415; 80048; 80061; 80076; 83735; 84439; 84443; 85025

== ENCOUNTER 2024-03-02 22:54 | Emergency (ER) | payer MEDICARE, OTHER, SELFPAY ==
[2024-03-02 22:55] VITALS: BP 158/73; PULSE 73; RESP 16; TEMP 36.8; O2SAT 98; BMI 31.1
--- NOTE | 2024-03-02 23:16 | ED_ITS ---
Discharge Plan Disposition Patient Disposition: Home, Self-Care Prescriptions Prescriptions: New methocarbamol 500 mg tablet 1,000 mg PO Q6H PRN (Reason: pain) Qty: 30 0RF lidocaine 5 % adhesive patch,medicated 1 patch topical DAILY PRN (Reason: pain) Qty: 30 0RF Rx Instructions: leave on most painful area for up to 12 hrs No Action prednisone 20 mg tablet 20 mg PO BID 5 Days Qty: 10 0RF fluticasone propionate [Children's Flonase Allergy Rlf] 50 mcg/actuation spray,suspension 1 spray intranasal DAILY Qty: 16 2RF Rx Instructions: administer into each nostril loratadine [Claritin] 10 mg tablet 10 mg PO DAILY Qty: 30 2RF triamcinolone acetonide 0.1 % ointment 1 applic topical BID Qty: 15 0RF multivitamin tablet 1 tab PO DAILY aspirin 81 mg tablet,delayed release (DR/EC) See Rx Instructions .ROUTE .COMPLEX Qty: 90 3RF Dose Instruction: Take 1 tablet by mouth once daily Rx Instructions: Take 1 tablet by mouth once daily atorvastatin 20 mg tablet 20 mg PO DAILY Qty: 90 3RF furosemide 40 mg tablet 40 mg PO DAILY Qty: 90 3RF nebivolol [Bystolic] 5 mg tablet 5 mg PO DAILY Qty: 90 3RF potassium chloride [Klor-Con M20] 20 mEq tablet,ER particles/crystals 20 meq PO DAILY Qty: 90 3RF levothyroxine 112 mcg tablet See Rx Instructions .ROUTE .COMPLEX Qty: 90 3RF Dose Instruction: TAKE 1 TABLET BY MOUTH ONCE DAILY FOR HYPOTHYROIDISM Rx Instructions: TAKE 1 TABLET BY MOUTH ONCE DAILY FOR HYPOTHYROIDISM Referrals Follow up/Referrals: Chauncey Loyola APRN [Primary Care Provider] - See instructions Activity Restrictions/Add. Instructions Additional Instructions/Restrictions: Please follow-up with your primary care provider. Please return to the emergency department if you develop any new or worsening symptoms or become concerned for your health. Please use ice and heat as needed. Please take Tylenol and ibuprofen as needed for pain. Please use lidocaine patches. Please take Robaxin as needed for pain. Clinical Impressions Clinical Impression: Musculoskeletal back pain Instructions Patient Instructions: DI for Low Back Pain Discharge ED Provider: Zachary Lynch Adult HPI General Chief complaint: Back Pain/Injury Stated complaint: left side abd pain Time Seen by Provider: 03/02/24 23:16 History of Present Illness HPI narrative: 63-year-old female with history of hypertension hyperlipidemia presents with left-sided CVA/flank pain. She reports that it started while she was turning to move soil in her elevated gardening beds. She reports it is focal in nature and exacerbated with movement. She reports when she sits still it does not hurt. She reports that she has had a kidney stone in the left side before but it was never obstructing or problem. She denies any urinary symptoms such as burning with urination or increased or decreased urinary frequency. Denies any fevers chills. Denies any numbness tingling or weakness. Reports no pain in the midline spine. Related Data Home Medications Medication Instructions Recorded Confirmed multivitamin 1 tab PO DAILY Supplement 07/24/18 11/09/23 Previous Rx's Medication Instructions Recorded aspirin 81 mg tablet,delayed See Rx Instructions .Route 04/27/23 release .COMPLEX #90 tabs atorvastatin 20 mg tablet 20 mg PO DAILY Cholesterol #90 tabs 04/27/23 furosemide 40 mg tablet 40 mg PO DAILY SWELLING #90 tabs 04/27/23 nebivolol 5 mg tablet (Bystolic) 5 mg PO DAILY #90 tabs 04/27/23 potassium chloride 20 mEq 20 meq PO DAILY #90 tabs 04/27/23 tablet,extended release(part/cryst) (Klor-Con M) levothyroxine 112 mcg tablet See Rx Instructions .Route 05/11/23 .COMPLEX #90 tabs fluticasone propionate 50 1 spray intranasal DAILY #16 grams 11/09/23 mcg/actuation nasal spray,suspension (Children's Flonase Allergy Relief) loratadine 10 mg tablet (Claritin) 10 mg PO DAILY #30 tabs 11/09/23 prednisone 20 mg tablet 20 mg PO BID 5 days #10 tabs 11/09/23 triamcinolone acetonide 0.1 % 1 applic topical BID #15 grams 11/09/23 topical ointment lidocaine 5 % topical patch 1 patch topical DAILY PRN pain #30 03/03/24 ea methocarbamol 500 mg tablet 1,000 mg (2 x 500 mg) PO Q6H PRN 03/03/24 pain #30 tabs Allergies Allergy/AdvReac Type Severity Reaction Status Date / Time No Known Allergies Allergy Verified 11/09/23 10:46 PFSH PFSH Disclaimer: The information contained in this section may have been updated after the patient was seen, as this information can be updated by other users. Medical History Acute bronchitis Chest pain Fatigue Otitis media SOB (shortness of breath) Social History Smoking Status: Never smoker alcohol intake: never substance use type: denies use current occupational status: other Travel in the last 8 weeks: None household members: family housing: house caffeine: Yes ROS Obtained: Yes All systems reviewed & no additional complaints except as documented Physical Exam General General appearance: alert and in no apparent distress Head Head exam: atraumatic and normocephalic Eye Eye exam: Present normal appearance, PERRL and EOMI ENT ENT exam: Present normal oropharynx and normal external ear exam Neck Neck exam: Present normal inspection and full ROM Chest Chest inspection: Present normal inspection and symmetric chest wall rise; Absent tenderness Respiratory Respiratory exam: Present normal lung sounds bilaterally; Absent respiratory distress Cardiovascular Cardiovascular exam: Present regular rate and normal rhythm Abdominal Exam Abdominal exam: Present soft; Absent distention, tenderness or guarding Extremities Exam Extremities exam: Present normal inspection; Absent edema or joint swelling Back Exam Back exam: Present normal inspection and tenderness (Focal tenderness in the left flank/CVA, exacerbated with movement. No abdominal tenderness); Absent vertebral tenderness Neurological Exam Neurological exam: Present alert and oriented X3; Absent motor sensory deficit Psychiatric Psychiatric exam: Present normal affect and normal mood Skin Skin exam: Present warm, dry and normal color Lymphatic Lymphatic Findings: no adenopathy Medical Decision Making Medical Records Medical records reviewed: Yes I reviewed the patient's medical records. Dariel Inquiry Pt receiving controlled substance: No Dariel was queried for this patient: No Vital Signs: 03/02/24 22:55 03/03/24 00:30 03/03/24 00:42 Temperature 98.2 F 98.2 F Temperature Source Oral Oral Pulse Rate 59 L 60 Pulse Rate [Right] 73 Respiratory Rate 16 15 18 Blood Pressure 129/65 156/77 H Blood Pressure [Right Arm] 158/73 H Blood Pressure Mean [Right Arm] 101 Blood Pressure Source [Right Arm] Automatic Cuff Blood Pressure Position Sitting Blood Pressure Position [Right Arm] Sitting 02 Sat by Pulse Oximetry 98 98 Oxygen Delivery Method Room Air Room Air Room Air 03/03/24 01:00 Temperature Temperature Source Pulse Rate 62 Pulse Rate [Right] Respiratory Rate 20 Blood Pressure 129/65 Blood Pressure [Right Arm] Blood Pressure Mean [Right Arm] Blood Pressure Source [Right Arm] Blood Pressure Position Blood Pressure Position [Right Arm] 02 Sat by Pulse Oximetry 98 Oxygen Delivery Method Room Air Lab Data Lab results reviewed: Yes I reviewed the patient's lab results. Lab Results 03/02/24 23:00: Urine Color Yellow, Urine Appearance Clear, Urine pH 6.0, Ur Specific [place] >= 1.030, Urine Protein Negative, Urine Glucose (UA) Negative, Urine Ketones Negative, Urine Blood Trace-i, Urine Nitrate Negative, Urine Bilirubin Negative, Urine Urobilinogen 0.2, Ur Leukocyte Esterase Trace, Urine RBC None, Urine WBC 5-10, Ur Squamous Epith Cells 5-10, Urine Bacteria 1+, Urine Mucus Trace 03/02/24 23:30: WBC 4.4 L, RBC 4.02 L, Hgb 12.7, Hct 38.0, MCV 94.3, MCH 31.6 H, MCHC 33.5, RDW 13.7, Plt Count 214, MPV 9.6, Neut % (Auto) 47.5, Lymph % (Auto) 40.5, [place] % (Auto) 7.7, Eos % (Auto) 3.5, Baso % (Auto) 0.8, Neut # (Auto) 2.1, Lymph # (Auto) 1.8, [place] # (Auto) 0.3, Eos # (Auto) 0.2, Baso # (Auto) 0.0, Sodium 139, Potassium 3.9, Chloride 102, Carbon Dioxide 30, Anion Gap 10.9, BUN 25 H, Creatinine 0.70, Estimated Creat Clear 66, Estimated GFR 84, Est GFR ( Amer) 102, Glucose 105 H, Calcium 9.4, Total Bilirubin 0.3, AST 36, ALT 29, Alkaline Phosphatase 90, Total Protein 7.5, Albumin 4.2, Globulin 3.3 H, Albumin/Globulin Ratio 1.3 03/02/24 23:30 03/02/24 23:30 Orders (Tests/Meds): ED MEDICATIONS Generic Name Dose Route Start Last Admin Trade Name Freq PRN Reason Stop Dose Admin Sodium Chloride 10 ml 03/03/24 00:22 03/03/24 00:25 Sodium Chloride 0.9% 10ml Syr (Rad Only) IV 04/02/24 00:21 10 ml NEEDED PRN Administration Maintain IV Site Discontinued Medications Generic Name Dose Route Start Last Admin Trade Name Romel PRN Reason Stop Dose Admin Acetaminophen 1,000 mg 03/02/24 23:22 03/02/24 23:32 Acetaminophen 500mg Tab PO 03/02/24 23:23 1,000 mg ONCE ONE Administration Iopamidol 70 ml 03/03/24 00:22 03/03/24 00:25 Iopamidol-370 (76%);100ml Bottle IV 03/03/24 00:23 70 ml ONCE ONE Administration Ketorolac Tromethamine 30 mg 03/02/24 23:22 03/02/24 23:32 Ketorolac 30mg/Ml Vial IV 03/02/24 23:23 30 mg ONCE ONE Administration Lidocaine 1 each 03/03/24 01:09 03/03/24 01:15 Lidocaine 5% Transdermal Patch TP 03/03/24 01:10 1 each ONCE ONE Administration Methocarbamol 500 mg 03/02/24 23:22 03/02/24 23:32 Methocarbamol 500mg Tablet PO 03/02/24 23:23 500 mg ONCE ONE Administration Ondansetron HCl 4 mg 03/02/24 23:22 03/02/24 23:32 Ondansetron 4mg/2ml Vial IV 03/02/24 23:23 4 mg ONCE ONE Administration ORDERS Category Date Time Status CT abdomen pelvis w con Stat Cat Scan 03/02/24 23:22 Completed CBC w/Auto Diff [Complete Blood Count Auto Diff] Stat Lab 03/02/24 23:30 Completed CMP [Comprehensive Metabolic Panel] Stat Lab 03/02/24 23:30 Completed UA [Urinalysis and Microscopic] Stat Lab 03/02/24 23:00 Completed Medical Decision Narrative: 63-year-old female with history of hypertension hyperlipidemia hypothyroidism presents with acute onset focal left CVA pain that started after a twisting motion, the pain is only exacerbated by movement. Denies any urinary symptoms.. History was obtained interactive discussion with patient, chart review, family. On arrival, patient is [afebrile, hemodynamically stable, satting appropriately, alert, oriented x4, GCS 15], moving all extremities spontaneously. Full physical exam performed and significant for focal left CVA tenderness, no midline spinal tenderness, no neurologic abnormalities, no abdominal tenderness, normal distal neurovascular exam. Differential includes but is not limited to musculoskeletal pain, rib fracture, pyelonephritis, ureterolithiasis, aortic pathology, colonic pathology. Patient was given IV Toradol, p.o. Robaxin, IV Zofran, p.o. Tylenol for symptomatic management and correction of underlying abnormalities. Workup initiated including CBC CMP UA CT abdomen pelvis with IV contrast.. On re-evaluation, patient [remains afebrile, HD stable.] Laboratory workup independently interpreted by me and significant for no significant leukocytosis, no significant electrolyte derangement, urine with 5- 10 squames, 5-10 WBCs, no reds, 1+ bacteria, negative nitrates.. Imaging independently interpreted by me and significant for no focal abnormality such as kidney stone or perinephric stranding, no rib fracture. See radiology read for full review of final results. CTA was considered, but deemed unnecessary due to history and exam. Given patient history, exam and workup, patient's presentation most likely represents musculoskeletal back pain. The patient has no urinary symptoms and her urine does not appear consistent with pyelonephritis. Low concern for emergent pathology at this time. Patient was discharged stable condition with prescription for muscle relaxer and lidocaine patches. Precautions given.. Procedures Risk/Benefits of Procedure(s) Were Explained: Yes Critical Care Critical Care Time Critical Care Time: No
--- NOTE | 2024-03-02 23:22 | CT_ITS ---
PROCEDURE INFORMATION: Exam: CT Abdomen And Pelvis With Contrast Exam date and time: 03/03/2024 12:09 AM Age: 63 years old Clinical indication: Abdominal pain; Additional info: Left cva/back pain TECHNIQUE: Imaging protocol: Computed tomography of the abdomen and pelvis with contrast. Radiation optimization: All CT scans at this facility use at least one of these dose optimization techniques: automated exposure control; mA and/or kV adjustment per patient size (includes targeted exams where dose is matched to clinical indication); or iterative reconstruction. Contrast material: ISOVUE; Contrast volume: 70 ml; Contrast route: IV; COMPARISON: CR XR CHEST 2V 09/24/2021 11:16 AM FINDINGS: Lungs: Scattered areas of bronchial wall thickening which are likely chronic inflammatory. A few areas of subpleural reticulation are noted, nonspecific. Liver: There are calcifications in the liver which most likely reflect calcified granulomas. Gallbladder and biliary ducts: The patient is status post cholecystectomy. Pancreas: Normal. Spleen: Normal. Adrenal glands: The adrenal glands appear normal. Kidneys and ureters: There are no soft tissue renal masses or hydronephrosis. Stomach and bowel: The stomach, small bowel, and colon are well-distended and show no evidence of wall thickening, masses, or obstruction. Appendix: No evidence of appendicitis. Intraperitoneal space: Unremarkable. Vasculature: There is atherosclerotic disease of the visualized aorta and its major branch vessels. Lymph nodes: No lymphadenopathy. Urinary bladder: Unremarkable as visualized. Reproductive: There is a vaginal pessary place. Bones/joints: There is diffuse degenerative disease of the visualized osseous structures. There is anterolisthesis of L4 on L5. Soft tissues: There is a small fat containing umbilical hernia. IMPRESSION: No acute inflammatory or obstructive process is identified. Incidental findings are described within the findings section.
[2024-03-02 23:28] LABS: Microscopic, Urine URINE MICROSCOPIC (MICROSCOPIC)
[2024-03-02] MEDS: METHOCARBAMOL 500MG TABLET 500 MG PO (23:32)
[2024-03-02] MEDS: ACETAMINOPHEN 500MG TAB 1000 MG PO (23:32)
[2024-03-02] MEDS: KETOROLAC 30MG/ML VIAL 30 MG IV (23:32)
[2024-03-02] MEDS: ONDANSETRON 4MG/2ML VIAL 4 MG IV (23:32)
[2024-03-02 23:33] LABS: Appearance,Urine CLEAR (Clear); Bilirubin,Urine Negative (Negative); Blood, Urine TRACE-I (Negative); Color,Urine YELLOW (Yellow); Glucose,Urine (UA) Negative (Negative); Ketones,Urine Negative (Negative); Leukocyte Esterase,Urine TRACE (Negative); Nitrate,Urine Negative (Negative); Protein,Urine Negative (Negative); Specific Gravity, Urine >= 1.030 (1.005-1.030); Urobilinogen,Urine 0.2 EU/dl (0.2)
[2024-03-02 23:35] LABS: Bacteria,Urine 1+ /lpf; Mucus,Urine Trace /lpf
[2024-03-02 23:46] LABS: Basophils % 0.8 % (0.1-2.0); Eosinophils # 0.2 K/mm3 (0.0-0.4); Eosinophils % 3.5 % (0.1-12.0); Hemoglobin 12.7 g/dL (12.2-16.2); Lymphocytes # 1.8 K/mm3 (0.7-4.5); Lymphocytes % 40.5 % (10-50); Mean Corpuscular HGB Conc 33.5 g/dL (31.8-35.4); Mean Corpuscular Hemoglobin 31.6 pg (27.0-31.2); Mean Corpuscular Volume 94.3 fl (81-99); Mean Platelet Volume 9.6 fl (7.4-10.4); Monocytes # 0.3 K/mm3 (0.1-1.0); Monocytes % 7.7 % (1.7-9.3); Neutrophils # 2.1 K/mm3 (1.8-7.8); Neutrophils % 47.5 % (37.0-80.0); Platelet Count 214 K/mm3 (142-424); Red Blood Count 4.02 M/mm3 (4.20-5.40); Red Cell Distribution Width 13.7 % (11.5-17.5); White Blood Count 4.4 K/mm3 (4.8-10.8)
[2024-03-02 23:55] LABS: Alanine Aminotransferase 29 U/L (12-78); Albumin Level 4.2 g/dl (3.5-5.0); Albumin/Globulin Ratio 1.3 (1.1-1.8); Alkaline Phosphatase 90 U/L (38-126); Anion Gap 10.9 mEq/L (5-15); Aspartate Amino Transferase 36 U/L (14-36); Bilirubin,Total 0.3 mg/dl (0.2-1.3); Blood Urea Nitrogen 25 mg/dl (7-17); Calcium 9.4 mg/dl (8.4-10.2); Carbon Dioxide 30 mmol/L (22.0-30.0); Chloride 102 mmol/L (98-107); Creatinine Clearance Estimated 66 mL/min (50-200); Estimated Glomerular Filt Rate 84 ml/min (>60); GFR (African American) 102 ML/MIN (>60); Globulin 3.3 g/dL (1.3-3.2); Glucose 105 mg/dl (74-100); Potassium 3.9 mmoL/L (3.5-5.1); Sodium 139 mmol/L (136-145); Total Protein,Serum 7.5 g/dl (6.3-8.2)
[2024-03-03] MEDS: IOPAMIDOL-370 (76%);100ML BOTTLE 70 ML IV (00:25)
[2024-03-03] MEDS: SODIUM CHLORIDE 0.9% 10ML SYR (RAD ONLY) 10 ML IV (00:25)
[2024-03-03 00:42] VITALS: BP 156/77; PULSE 60; RESP 18; O2SAT 98
[2024-03-03 01:00] VITALS: BP 129/65; PULSE 62; RESP 20; O2SAT 98
[2024-03-03] MEDS: LIDOCAINE 5% TRANSDERMAL PATCH 1 EACH TP (01:15)
[2024-03-03 01:26] VITALS: BP 129/65; PULSE 59; RESP 15; TEMP 36.8; O2SAT 98
== END 2024-03-03 01:27 | disposition home or self-care (01) ==
PROVIDERS: Emergency Provider Emergency Medicine; PCP Nurse Practitioner Family
DX: M54.59 Other low back pain (principal); R10.32 Left lower quadrant pain; E03.9 Hypothyroidism, unspecified; E78.5 Hyperlipidemia, unspecified; I10 Essential (primary) hypertension; X50.0XXA Overexertion from strenuous movement or load, initial encounter; Y93.H2 Activity, gardening and landscaping
CPT/HCPCS: 74177; 80053; 81001; 85025; 96374; 96375; 99284; J1885; J2405; Q9967

== ENCOUNTER 2024-03-29 16:41 | Outpatient (CLI) | payer MEDICARE, OTHER, SELFPAY ==
--- NOTE | 2024-03-29 16:42 | MR_ITS ---
PROCEDURE INFORMATION: Exam: MR Left Lower Extremity Joint Without and With Contrast; Hip Exam date and time: 03/29/2024 4:49 PM Age: 63 years old Clinical indication: Pain; Hip; Left; Additional info: Hip pain x 1 month TECHNIQUE: Imaging protocol: Magnetic resonance imaging of the left lower extremity joint without and with contrast. Exam focused on the hip. Sequences: Coronal and axial large field of view sequences include both the left and right hips. Sagittal sequences are focused on the symptomatic hip. Contrast material: PROHANCE; Contrast volume: 15 ml; Contrast route: IV; COMPARISON: 1. CT ABDOMEN PELVIS W CON 03/03/2024 12:09 AM FINDINGS: Bones/joints: There is no acute fracture or dislocation. No aggressive bone lesions are present. Mild primary osteoarthritis involves the bilateral hips. Labrum: There are likely bilateral hip labral tears favored to be degenerative. Assessment is limited on this exam. Bursae: A trace amount of edema is present in each greater trochanteric bursa region, which can be asymptomatic. TENDONS: Tendons of iliopsoas group: Unremarkable. No evidence of tear. Tendons of medial compartment of thigh: Unremarkable. No evidence of tear. Tendons of lateral rotators of hip: Unremarkable. No evidence of tear. Tendons of gluteal group: Unremarkable. No evidence of tear. Soft tissues: Unremarkable. Bladder: There is nonspecific diffuse urinary bladder wall thickening. Reproductive: There is a pessary device in the vagina. An intramural uterine fibroid measures 1.1 cm. IMPRESSION: 1. 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 2. Nonspecific diffuse urinary bladder wall thickening. 3. Intramural uterine fibroid measuring 1.1 cm. 4. No acute fracture or dislocation. 5. Please see the contemporaneously performed lumbar spine MRI report for findings in the lumbar region including severe spinal canal stenosis and nerve root compression.
--- NOTE | 2024-03-29 16:42 | MR_ITS ---
PROCEDURE INFORMATION: Exam: MR Lumbar Spine Without and With Contrast Exam date and time: 03/29/2024 4:49 PM Age: 63 years old Clinical indication: Low back pain; Additional info: Back pain x 1 month TECHNIQUE: Imaging protocol: Magnetic resonance imaging of the lumbar spine without and with contrast. Contrast material: PROHANCE; Contrast volume: 15 ml; Contrast route: IV; COMPARISON: CT ABDOMEN PELVIS W CON 03/03/2024 12:09 AM FINDINGS: Bones/joints: There is grade 1 anterolisthesis of L4 on L5 measuring 6 mm with nondisplaced pars interarticularis defects which are unchanged. The alignment is otherwise anatomic. The vertebral body heights are maintained. No fracture. No suspicious marrow signal. Spinal cord: Visualized cord, conus medullaris and cauda equina are unremarkable. T12-L1: There is subtle diffuse disc bulging without stenosis. L1-L2: No significant disc bulge or herniation. No severe spinal canal stenosis. No significant neural foraminal narrowing. L2-L3: No significant disc bulge or herniation. No severe spinal canal stenosis. No significant neural foraminal narrowing. L3-L4: The spinal canal and neural foramina are patent. There is minimal bilateral facet arthrosis. L4-L5: There is diffuse disc bulging and degenerative hypertrophy of the facets with thickened ligamentum flavum resulting in severe stenosis of the spinal canal. The CSF space is circumferentially effaced at the disc level. There is severe compression of the srkze-gznttia-ikqj-left descending L5 nerve root in the lateral recess. Moderate left neural foraminal stenosis. Mild right neural foraminal stenosis. L5-S1: there is degenerative facet arthrosis present without significant stenosis of the spinal canal. Mild bilateral neural foraminal stenosis. Soft tissues: Unremarkable. IMPRESSION: Spondylolysis L4-L5 with grade 1 spondylolisthesis and degenerative disc disease resulting in severe spinal canal stenosis, as described. There is also compression of the zfhae-acknqby-vfpl-left descending L5 nerve root in the lateral recess at L4-L5.
== END 2024-03-29 23:59 | disposition home or self-care (01) ==
LOC: RAD 16:42
PROVIDERS: PCP Family Medicine; Visit Provider Family Medicine
DX: M54.9 Dorsalgia, unspecified; M25.552 Pain in left hip
CPT/HCPCS: 72158; 73723; A9576

== ENCOUNTER 2024-04-18 14:57 | Outpatient (POV) | payer MEDICARE, OTHER, SELFPAY ==
--- NOTE | 2024-04-18 15:39 | A.OFFVIS_ITS ---
HPI Data of Consult Patient: new to practice Consult date: 04/18/24 Requesting Physician: Jody Corona APRN Primary Care Provider: Harriett Scherer APRN Consult Narrative Reason for consult: Left-sided low back pain, groin pain, buttocks pain History of present illness: Ms. Rae is a 63 year old female who presents today as a new patient. She is a referral from Harriett adams office. Today she rates her pain an 8 out of 10. Patient states that she is experiencing pain all throughout her low back on the left side that does go into her hip, groin and buttocks area. Patient does state that this did start in February when she was working out in her garden. Patient states that she turned a certain way and had all of a sudden sharp shooting pains. Patient does states she continues to have burning sensations all into these locations and it it is so severe with any increased activity that it does interfere with her ability perform activities of daily living such as cooking and cleaning. Patient states she has tried oral medications such as Motrin and Tylenol along with heat and ice and topicals with minimal relief. Patient does state that she relies on heated baths, tramadol and methocarbamol 500 mg. Patient states that this does seem to help. She is currently in physical therapy however has not noticed any additional relief. Patient does also state that they gave her a prescription for naproxen 500 mg twice daily and did even buy herself a traction device that helps temporarily while she is using it. Patient states that she has had no quality of life since this originally started and that she spends a lot of time sitting in a chair and having to change positions due to the pain. Patient is interested in any help we may be able to provide. She does state that she ended up going to see a neurosurgeon who is wanting to do a fusion however she would like to see if the physical therapy and other conservative treatment would help before proceeding forward with this procedure. Her Dariel has been reviewed and is appropriate. CC: Jody Corona APRN [facility] Disclaimer: The information contained in this section may have been updated after the patient was seen, as this information can be updated by other users. Medical History Otitis media Acute bronchitis Chest pain Fatigue SOB (shortness of breath) Social History Smoking Status: Never smoker alcohol intake: never substance use type: denies use current occupational status: other Travel in the last 8 weeks: None household members: family housing: house caffeine: Yes Review of Systems Review of Systems Review of systems:: pertinent systems reviewed and negative unless documented below Review of systems (narrative): Review of Systems: General: No recent weight changes, no fever, no sleep disturbances Respiratory: No cough, no shortness of air, no recurring pulmonary infections Cardiovascular/peripheral vascular: No chest pain, no palpitations, no edema, no shortness of breath Gastrointestinal: No new onset incontinence, normal bowel movements reported Genitourinary: No new onset incontinence Musculoskeletal: Low back pain, left hip pain, left buttocks pain, left groin pain Psychiatric: [Normal mood/affect] Neurological: [Denies weakness in extremities], [denies balance issues] Meds Home Medications and Allergies Home Medications ?Medication ?Instructions ?Recorded ?Confirmed ?Type multivitamin 1 tab PO DAILY Supplement 07/24/18 03/12/24 History aspirin 81 mg tablet,delayed See Rx Instructions .Route 04/27/23 03/12/24 Rx release .COMPLEX #90 tabs atorvastatin 20 mg tablet 20 mg PO DAILY Cholesterol #90 tabs 04/27/23 03/12/24 Rx furosemide 40 mg tablet 40 mg PO DAILY SWELLING #90 tabs 04/27/23 03/12/24 Rx nebivolol 5 mg tablet (Bystolic) 5 mg PO DAILY #90 tabs 04/27/23 03/12/24 Rx potassium chloride 20 mEq 20 meq PO DAILY #90 tabs 04/27/23 03/12/24 Rx tablet,extended release(part/cryst) (Klor-Con M) levothyroxine 112 mcg tablet See Rx Instructions .Route 05/11/23 03/12/24 Rx .COMPLEX #90 tabs fluticasone propionate 50 1 spray intranasal DAILY #16 grams 11/09/23 03/12/24 Rx mcg/actuation nasal spray,suspension (Children's Flonase Allergy Relief) loratadine 10 mg tablet (Claritin) 10 mg PO DAILY #30 tabs 11/09/23 03/12/24 Rx naproxen 500 mg tablet 500 mg PO Q12H PRN pain #60 tabs 03/12/24 03/12/24 Rx methocarbamol 500 mg tablet 1,000 mg (2 x 500 mg) PO Q6H PRN 03/30/24 03/30/24 Rx pain #30 tabs New Prescriptions to Start Prescriptions: Allergies Allergy/AdvReac Type Severity Reaction Status Date / Time No Known Allergies Allergy Verified 03/12/24 15:44 Objective Narrative: Physical Exam: General: Alert and oriented x3, no acute distress, pleasant and cooperative Lungs: Respirations even and unlabored, symmetrical chest expansion Eyes: PERRL Musculoskeletal: Flexion and extension of lumbar [spine] somewhat guarded secondary to pain, [antalgic gait noted] point tenderness along left SI with positive left Rohan's, Isaac's, Gaenslen's, compression and distraction exam Neurological: Speech clear, no gross sensory deficit Assessment and Plan *Assessment and plan (1) Sacroiliitis: Status: Acute Category: Medical Code(s): M46.1 - Sacroiliitis, not elsewhere classified Plan Patient had extreme point tenderness on her left SI with a positive left Fabe r's, Isaac's, Gaenslen's, compression and distraction exam. I did discuss with patient that I do believe she would benefit from a left SI injection. Risk and benefits were discussed with patient and she would like to proceed forward with this plan of care. Patient has tried and failed conservative therapy including oral medications, heat and ice, topicals, current ongoing physical therapy and continued at home stretching exercises for longer than 6 weeks. Patient will be scheduled for a left SI injection under fluoroscopy and I will also order the patient a compounded cream. Patient has been instructed to contact the clinic with any concerns before the next appointment. Dr. Ardon has reviewed this note and agrees with this plan of care. This note was dictated using voice recognition software and make contain errors or omissions. All injections are used with Lidocaine or Bupivacaine and Depo Medrol.
[2024-04-18 15:43] VITALS: BP 161/78; PULSE 84; RESP 20; O2SAT 99; BMI 32.6
== END 2024-04-18 23:59 | disposition home or self-care (01) ==
LOC: SC.PAIN 14:58
PROVIDERS: PCP Family Medicine; Visit Provider Nurse Practitioner Family
DX: M46.1 Sacroiliitis, not elsewhere classified (principal); Z73.89 Other problems related to life management difficulty; Z79.899 Other long term (current) drug therapy
CPT/HCPCS: 99202; G0463

== ENCOUNTER 2024-05-01 08:57 | Day surgery (SDC) | payer MEDICARE, OTHER, SELFPAY ==
[2024-05-01 09:14] VITALS: BP 146/76; PULSE 75; RESP 16; TEMP 36.1; O2SAT 98; BMI 30.9
[2024-05-01] MEDS: BUPIVACAINE 0.25% 10ML INJ 25 MG IJ (09:25)
[2024-05-01 09:28] VITALS: BP 176/75; PULSE 83; RESP 18; O2SAT 96
[2024-05-01] MEDS: LIDOCAINE 1% 5ML PF VIAL 5 ML (09:28)
[2024-05-01] MEDS: methylPREDNISolone ACETATE 80MG/ML VIAL 80 MG (09:28)
[2024-05-01 09:30] VITALS: BP 176/75; PULSE 83; RESP 18; O2SAT 96
[2024-05-01 09:36] VITALS: BP 162/62; PULSE 79; RESP 18; O2SAT 98
--- NOTE | 2024-05-01 09:38 | EXP.PAIN.PRO ---
Procedure Date: 05/01/24 Time: 09:20 Anesthesiologist:: Amrit Monreal CRNA Complications:: None Pre-procedure Diagnosis:: Left sacroiliitis Post-procedure Diagnosis:: Same Indications for Procedure:: Patient is a pleasant 63-year-old female comes to clinic today for a left sacroiliac joint injection of cortisone and local anesthetic. Patient describes low lumbar back pain off the midline to the left. Left posterior hip pain. Also, she reports difficulty transitioning from sitting to standing due to the left low lumbar back pain. Ambulation increases pain. Sitting increases pain. She rates her pain 9/10. Procedure Details:: Procedure: Left sacroiliac injection under fluoroscopy Informed consent was obtained and the risk and benefits of the procedure were explained to the patient.~ The patient was taken to the procedure room and noninvasive monitors were placed including noninvasive blood pressure cuff and pulse oximeter.~ The patient was placed prone on the procedure table.~ The~ left hip was cleansed using Betadine as a cleansing solution.~ C-arm fluorosocpy was used to view the left SI joint.~ The skin and subcutaneous tissues were anesthetized using Lidocaine 1.5% and a 25-gauge needle.~ After this, a 22-gauge spinal needle was inserted under fluoroscopic guidance into the inferior aspect of the left SI joint.~ Omnipaque dye was injected and a good spread was seen throughout the joint.~ After this, approximately 5 mL of bupivacaine 0.25% and Depo-Medrol 40 mg was incrementally injected into the sacroiliac joint.~ The patient tolerated the procedure well with no complications.~ The patient was observed in the Pain Clinic for a period of 30-45 minutes, then discharged home neurologically intact.~ Plan and Disposition:: Patient was discharged without incident.
== END 2024-05-01 09:36 | disposition home or self-care (01) ==
PROVIDERS: PCP Nurse Practitioner Family; Visit Provider Nurse Anesthetist, Certified Registered
DX: M46.1 Sacroiliitis, not elsewhere classified (principal)
CPT/HCPCS: 27096; G0260; J1010

== ENCOUNTER 2024-05-24 10:00 | Outpatient (RCR) | payer MEDICARE, OTHER, SELFPAY ==
--- NOTE | 2024-03-28 12:11 | [facility].PTOPEV ---
PT Outpatient Evaluation Rehab PT Outpatient Evaluation Start: 03/28/24 11:03 Freq: Status: Active Protocol: Document 03/28/24 11:09 ANAHI (Rec: 03/28/24 12:11 ANAHI [id number]) E-signed By Jody Sharpe, PT Outpatient Therapy Subjective History Subjective History Pt is a 63 y/o female who reports onset of L posterior hip pain 1 month ago. Pt reports she was emptying 5 bags of dirt into her flower bed and twisted to her L and felt something pull in her L hip. Pt reports immediate onset of posterolateral hip pain, denies swelling or bruising. Pt reports onset of left-sided low back pain and numbness of the hip ~1 week ago as well. Pt denies distal symptoms, b/b dysfunction or saddle anesthesia with exception of 1 instance of shooting pain down the L leg 3 days ago that was brief in nature. Pt reports altered sesation of numbness with touch. Pt states she went to the ER day following onset of pain where she had a CT of her abdomen/pelvis showing anterolithesis of L4-5. Pt reports she is scheduled to get a MRI of her hip and low back tomorrow. Pt received an injection on 03/12/24 which she states did not help with pain . Pt also reports she was prescribed Naproxen and a muscle relaxer which only eases the pain short-term. Pt reports pain is aggravated by prolonged sitting, standing, walking, stair climbing and laying down. Pt reports she is unable to sleep in her bed due to pain. Medical History: hypertension, hypothyroidism, hyperlipidemia New diagnosis of cancer in past 12 No months? Chief Complaint Pain Symptom Type Ache,Sharp,Dull,Burning, Numbness Symptoms Relieved By Heat,Prescription Meds, Activity Symptoms Aggravated By Twisting,Lifting Current Functional Limitations Lifting,Housework,Sleeping, Sitting Symptom Description Constant but Variable Level of pain today (0-10) 5 Pain scale - at its best (0-10) 2 Pain scale - at its worst (0-10) 10 Lumbopelvic Eval Assistive device Assistive Devices None / NA Gait Observation General Gait Pattern Observation Antalgic Gait,Decrease Weight Bear (L) Palapation tenderness bilateral lumbar spinal tenderness Yes buttock tenderness Yes Lumbar/Sacral Palpation Findings Tenderness Accessory Movement L-spine Vertebrae Accessory Movements Central P/A [place] that Elicit Symptoms L2 bilateral L3 bilateral L4 bilateral L5 bilateral Range of Motion Lumbar Spine Active Flexion Range of 90 Motion (degrees) Lumbar Spine Active Extension Range of 5 Motion (degrees) Left Lumbar Spine Lateral Flexion Active 10 Range of Motion (degrees) Right Lumbar Spine Lateral Flexion 10 Active Range of Motion (degrees) Manual Muscle Test Bilateral Knee Extension Strength Grade 5 Normal Knee Flexion Strength Grade 5 Normal Hip Flexion Strength Grade 4 Good Hip Abduction Strength Grade 4- Good- Hip Adduction Strength Grade 4- Good- Hip Extension Strength Grade 4- Good- Ankle Dorsiflexion Strength Grade 5 Normal DTR Rt Patellar 2+ Lt Patellar 2+ Rt Gastroc/Soleus 2+ Lt Gastroc/Soleus 2+ Altered Sensation Bilateral Comment equal and intact to light touch sensation bilaterally Special Tests Hip Amrit (MIKI) Test Negative Left,Negative Right Hip Piriformis Test Positive Left Sciatic Nerve Tension Test Negative Left,Negative Right Unilateral Straight Leg Raise ([place]ase[place]) Negative Left,Negative Right Test Hip/Knee Eval Palpation Tenderness left Knee Palpation Overall Comment 3/4 TTP of glute med/min, piriformis mm ROM Hip External Rotation Active Range of 40 Motion (degrees) Hip Internal Rotation Active Range of 30 Motion (degrees) Lower Extremity Functional Index Activities Today, do you or would you have any difficulty at all with: a.Any of your usual work, housework or Quite a bit of difficulty school activities b. Your usual hobbies, recreational or Extreme difficulty or unable sporting activities to perform activity c. Getting into or out of the bath Moderate difficulty d. Walking between rooms Moderate difficulty e. Putting on your shoes or socks No difficulty f. Squatting A little bit of difficulty g. Lifting an object, like a bag of A little bit of difficulty groceries from the floor h. Performing light activities around Moderate difficulty your home i. Performing heavy activities around Extreme difficulty or unable your home to perform activity j. Getting into or out of a car Quite a bit of difficulty k. Walking 2 blocks Extreme difficulty or unable to perform activity l. Walking a mile Extreme difficulty or unable to perform activity m. Going up or down 10 stairs (about 1 Quite a bit of difficulty flight of stairs) n. Standing for 1 hour Extreme difficulty or unable to perform activity o. Sitting for 1 hour Quite a bit of difficulty p. Running on even ground Extreme difficulty or unable to perform activity q. Running on uneven ground Extreme difficulty or unable to perform activity r. Making sharp turns while running fast Extreme difficulty or unable to perform activity s. Hopping Extreme difficulty or unable to perform activity t. Rolling over in bed Extreme difficulty or unable to perform activity LEFI Score Lower Extremity Functional Index Score 20 Outpatient Therapy Assessment Impairments Problems/Impairmments Palpation Tenderness,Impaired Range of Motion,Impaired Strength,Impaired Walking, Impaired Standing,Impaired Sitting,Impaired Driving, Impaired Lifting,Impaired Household Care,Impaired Stair Climbing,Impaired Recreational Activities,Subjective C/O Pain,Impaired Self Care/Self Management Prognosis Rehab Potential Good Clinical Impression Consistent with Diagnosis Yes Short Term Goals Number of Weeks 3 Improve LEFI Score Yes: Improve score to at least 30/80 to improve overall QOL Decrease Subjective C/O Pain Yes: Improve pain at worst to 8/10 to improve overall QOL Improve Self Care/Self Management Yes Patient to be Ind w/ HEP Yes Embossing Clerk Goals Number of Weeks 6 Decreased Palpation Tenderness Yes: 0-1/4 TTP of L hip Increase Range of Motion Yes: Improve lumbar AROM to WFL Increase Strength Yes: Improve L hip strength to 4+/5 grossly to assist with function Improve Ability to Climb Stairs Yes: 1 flight with HR to assist with household navigation Return to Recreational Activities Yes Improve LEFI Score Yes: Improve score to at least 40-50/80 to improve overall QOL Decrease Subjective C/O Pain Yes: Improve pain at worst to 6/10 to improve overall QOL Outpatient Therapy Plan of Care Treatment Plan May Include Therapeutic Exercise Including Home Yes Exercise Program Manual Therapy Techniques Yes Neuromuscular Re-education Yes Therapeutic Activities to Return to Yes Previous Functional/Work Level ADL/Self Care Education Yes Mechanical Traction Yes Dry Needling Yes Thermal Modalities Yes Electrical Stimulation Yes Ultrasound/Phonophoresis Yes Iontophoresis Yes Massage Yes Group Therapy for Medicare Yes Eval/Re-Eval Yes Aquatic Therapy Yes Frequency Times per week 2 Duration Number of Weeks 4-6 Addendums This patient is a candidate for social No or vocational rehab? Patient/Guardian verbally acknowledges Yes understanding of treatment program and consents to further treatment? Patient/Guardian verbally acknowledges Yes understanding of diagnosis, prognosis and goals for treatment? Eval Complexity PT Charges 03171 - Moderate Complexity Shoulder/Elbow Eval Shoulder Objective Measurements Elbow Objective Measurements PHYSICIAN CERTIFICATION: I certify the specified therapy services for Jessica Rae are required, authorized, and reviewed every 30 days.
--- NOTE | 2024-04-26 12:14 | HMH.RHREAS ---
Rehab Reassessment Rehab OP Re-assessment Start: 03/28/24 11:03 Freq: Status: Active Protocol: Document 04/26/24 10:41 ANAHI (Rec: 04/26/24 12:13 ANAHI [id number]) E-signed By Jody Sharpe PT Lower Extremity Functional Index Activities Today, do you or would you have any difficulty at all with: a.Any of your usual work, housework or Extreme difficulty or unable school activities to perform activity b. Your usual hobbies, recreational or Extreme difficulty or unable sporting activities to perform activity c. Getting into or out of the bath A little bit of difficulty d. Walking between rooms No difficulty e. Putting on your shoes or socks No difficulty f. Squatting Extreme difficulty or unable to perform activity g. Lifting an object, like a bag of Extreme difficulty or unable groceries from the floor to perform activity h. Performing light activities around A little bit of difficulty your home i. Performing heavy activities around Extreme difficulty or unable your home to perform activity j. Getting into or out of a car Quite a bit of difficulty k. Walking 2 blocks Extreme difficulty or unable to perform activity l. Walking a mile Extreme difficulty or unable to perform activity m. Going up or down 10 stairs (about 1 Extreme difficulty or unable flight of stairs) to perform activity n. Standing for 1 hour A little bit of difficulty o. Sitting for 1 hour No difficulty p. Running on even ground Extreme difficulty or unable to perform activity q. Running on uneven ground Extreme difficulty or unable to perform activity r. Making sharp turns while running fast Extreme difficulty or unable to perform activity s. Hopping Extreme difficulty or unable to perform activity t. Rolling over in bed A little bit of difficulty LEFI Score Lower Extremity Functional Index Score 25 Rehab Re-assessment Subjective Subjective Pt reports she feels 60% improved since starting PT. Pt reports left posterior hip pain is now intermittent versus constant in nature. Pt reports pain is localized to the left posterior hip. Pt denies distal LE symptoms, numbness/tingling or b/b dysfunction. Pt reports pain only abolishes when she is resting or takes Tramadol. Pt reports she takes Tramadol 1x/ day and a muscle relaxer at night to help her sleep. Pt reports pain at worst as 8/10 with twisting, prolonged standing, and transfers. Pt reports she saw a neurosurgeon a couple weeks ago who suggested surgery after she had a flexion/extension xray. Pt also reports she saw pain management recently and is scheduled to get a SI injection next Tuesday. Pt reports she returns to the neurosurgeon on 06/04/24. Objective Objective Notes Palpation: 4/4 TTP of L greater trochanter, L4-5, L5- S1, piriformis, glute med/min, TFL mm Lumbar AROM: flex 95, ext 15, LLF 25, RLF 18 (p! with extension) LLE MMT: hip flexion 4/5, hip abduction 4/5, hip adduction 4 /5, hip extension 4-/5 Assessment Progress Assessment Slower Than Expected Assessment Notes Pt has attended 8 PT sessions consisting of aerobic exercise , lumbar flexion exercises, core/hip strengthening, LE stretching, modalities and HEP with fair-good tolerance. Pt demonstrated slight improvement in LEFS score, lumbar AROM and LE strength this date compared to the initial evaluation. Pt demonstrated central sensitization with 4/4 TTP of light touch applied to the L hip musculature. Pt was educated on anatomy/pathology of condition, central sensitization and benefits of physical therapy. Overall, the pt would continue to benefit from skilled PT to further improve subjective report of pain, tenderness to palpation, core/hip strength, and functional activity tolerance to improve overall QOL. Patient goals met ST/4 Goals Not Met LEFS score, LTG Revised Goals n/a Plan Plan Continue initial POC Frequency of Therapy 2x/week Duration of therapy 4 more weeks Time and Billing Re-Eval Time 22 Re-Eval Billing Units 1 PHYSICIAN CERTIFICATION: I certify the specified therapy services for Margaret Rae are required, authorized, and reviewed every 30 days.
--- NOTE | 2024-05-24 13:20 | HMH.RHREAS ---
Rehab Reassessment Rehab OP Re-assessment Start: 03/28/24 11:03 Freq: Status: Active Protocol: Document 05/24/24 11:00 ANAHI (Rec: 05/24/24 13:19 ANAHI [id number]) E-signed By Jody Sharpe PT Lower Extremity Functional Index Activities Today, do you or would you have any difficulty at all with: a.Any of your usual work, housework or No difficulty school activities b. Your usual hobbies, recreational or No difficulty sporting activities c. Getting into or out of the bath No difficulty d. Walking between rooms No difficulty e. Putting on your shoes or socks No difficulty f. Squatting No difficulty g. Lifting an object, like a bag of No difficulty groceries from the floor h. Performing light activities around No difficulty your home i. Performing heavy activities around No difficulty your home j. Getting into or out of a car No difficulty k. Walking 2 blocks No difficulty l. Walking a mile A little bit of difficulty m. Going up or down 10 stairs (about 1 No difficulty flight of stairs) n. Standing for 1 hour A little bit of difficulty o. Sitting for 1 hour No difficulty p. Running on even ground Extreme difficulty or unable to perform activity q. Running on uneven ground Extreme difficulty or unable to perform activity r. Making sharp turns while running fast Extreme difficulty or unable to perform activity s. Hopping Extreme difficulty or unable to perform activity t. Rolling over in bed No difficulty LEFI Score Lower Extremity Functional Index Score 62 Rehab Re-assessment Subjective Subjective Pt reports she feels 90% improved since starting PT. Pt reports pain at worst as 2/10 within the past week. Pt reports describes pain as an ache that occurs with prolonged standing and bending . Pt denies radicular pain or paresthesia. Pt reports compliance with HEP with the exception of the past few days due to being sick with allergies. Pt states she has been taking it easy due to allergies Pt reports she returns to pain management on 05/28 and to the neurosurgeon on 06/04 for follow-up appointments. Objective Objective Notes Palpation: / TTP of L piriformis, glute med/min Lumbar AROM: flex 100, ext 20, LF 25 LE MMT: 4+/5 grossly Assessment Progress Assessment Progressing as Expected Assessment Notes Pt has attended 13 PT treatment sessions consisting of aerobic exercise, lumbar mobility, LE stretching/ strengthening, core strengthening, and HEP with good tolerance. Pt demonstrated improved LEFS score, tenderness to palpation , lumbar AROM, strength and subjective report of pain this date compared to previous assessments. At this time pt has met all PT goals and is appropriate to trial independent HEP. Pt instructed to notify PT if pain returns once allergies resolve and physical activity level increases. Patient goals met ST/4 LT/7 Goals Not Met n/a Revised Goals n/a Plan Plan Hold PT with trial of independent HEP. Time and Billing Re-Eval Time 12 Re-Eval Billing Units 1 PHYSICIAN CERTIFICATION: I certify the specified therapy services for Margaret Rae are required, authorized, and reviewed every 30 days.
== END 2024-05-24 10:05 | disposition home or self-care (01) ==
LOC: PT 10:00
PROVIDERS: Visit Provider Family Medicine
DX: M54.50 Low back pain, unspecified (principal); M25.559 Pain in unspecified hip
CPT/HCPCS: 97010; 97012; 97014; 97035; 97110; 97163; 97164; G0283

== ENCOUNTER 2024-05-28 14:02 | Outpatient (POV) | payer MEDICARE, OTHER, SELFPAY ==
[2024-05-28 14:11] VITALS: BP 161/87; PULSE 79; RESP 16; O2SAT 98; BMI 30.6
--- NOTE | 2024-05-28 15:09 | EXP.PAIN.SOA ---
[facility] Disclaimer: The information contained in this section may have been updated after the patient was seen, as this information can be updated by other users. Medical History Otitis media Acute bronchitis Chest pain Fatigue SOB (shortness of breath) Family History Other Unknown family medical history Social History Smoking Status: Never smoker alcohol intake: never substance use type: denies use current occupational status: other Travel in the last 8 weeks: None household members: family housing: house caffeine: Yes PM Subjective & Objective Subjective Subjective:: Patient is a pleasant 63-year-old female who presents today for follow-up of her left SI injection on 05/01/2024. Patient rates her pain today a 2 out of 10. Patient states that she has had 100% improvement from the symptoms she was having in her left hip. Patient states that she has been able to increase her activity with overall decreased pain. Patient does state that she has noticed the pain they are in her low back that does not radiate down into her lower extremities. Patient states it just goes across her low back and is more prominent with prolonged standing or walking. Patient does state that she has been released from physical therapy due to having significant improvement and no longer having the pain like what she wants. Patient states initially when she went for her visits to PT they could barely touch her without having severe pain and now the last visit they were able to increase pressure significantly and did not have the sharp shooting symptoms like what was there prior. Patient does state that she is scheduled to see neurosurgery next Tuesday. Patient is currently managed with Flexeril from an outside provider however states that she typically cannot tolerate taking this during the day because it does cause significant drowsiness. Her Dariel has been reviewed and is appropriate. Review of Systems: General: No recent weight changes, no fever, no sleep disturbances Respiratory: No cough, no shortness of air, no recurring pulmonary infections Cardiovascular/peripheral vascular: No chest pain, no palpitations, no edema, no shortness of breath Gastrointestinal: No new onset incontinence, normal bowel movements reported Genitourinary: No new onset incontinence Musculoskeletal: Low back pain Psychiatric: [Normal mood/affect] Neurological: [Denies weakness in extremities], [denies balance issues] Pain at rest (0-10 scale): 2 Objective Objective:: Physical Exam: General: Alert and oriented x3, no acute distress, pleasant and cooperative Lungs: Respirations even and unlabored, symmetrical chest expansion Eyes: PERRL Musculoskeletal: Flexion and extension of lumbar [spine] somewhat guarded secondary to pain, [antalgic gait noted] Neurological: Speech clear, no gross sensory deficit Has patient had previous pain injection?: Yes Percent improvement in pain since last injection: 100% Conservative treatment options previously tried: Home exercise plan Length of treatment: Longer than 6 weeks Meds Home Medications and Allergies Home Medications ?Medication ?Instructions ?Recorded ?Confirmed ?Type aspirin 81 mg tablet,delayed See Rx Instructions .Route 04/27/23 05/28/24 Rx release .COMPLEX #90 tabs potassium chloride 20 mEq 20 meq PO DAILY #90 tabs 04/27/23 05/28/24 Rx tablet,extended release(part/cryst) (Klor-Con M) levothyroxine 112 mcg tablet See Rx Instructions .Route 05/11/23 05/28/24 Rx .COMPLEX #90 tabs naproxen 500 mg tablet 500 mg PO Q12H PRN pain #60 tabs 03/12/24 05/28/24 Rx atorvastatin 20 mg tablet 20 mg PO DAILY Cholesterol #90 tabs 04/30/24 05/28/24 Rx cyclobenzaprine 5 mg tablet 5 mg PO DAILY Muscle relaxers for 04/30/24 05/28/24 History back/hip furosemide 40 mg tablet 40 mg PO DAILY SWELLING #90 tabs 04/30/24 05/28/24 Rx nebivolol 5 mg tablet (Bystolic) 5 mg PO DAILY #90 tabs 04/30/24 05/28/24 Rx tramadol 50 mg tablet 50 mg PO DAILY PRN For pain, hip 04/30/24 05/28/24 History and back New Prescriptions to Start Prescriptions: Allergies Allergy/AdvReac Type Severity Reaction Status Date / Time No Known Allergies Allergy Verified 05/28/24 14:11 Assessment and Plan *Assessment and plan (1) Sacroiliitis: Status: Acute Category: Medical Code(s): M46.1 - Sacroiliitis, not elsewhere classified (2) Back pain: Status: Acute Category: Medical Code(s): M54.9 - Dorsalgia, unspecified Plan Patient has had significant improvement following her left SI injection and does not require any additional injection therapy at this time. I did discuss with the patient that we will send in a 2-week dose of baclofen 5 mg twice daily as needed. Patient was counseled that she can try this medication if the pain does worsen from now until her next visit. Patient was counseled that if she does take it during the day to try it on the day she does not have to go anywhere in case it does make her drowsy. Patient acknowledges understanding and agrees with plan of care. Patient will return to clinic in 1 month for reevaluation of symptoms and plan of care. Patient has been instructed to contact the clinic with any concerns before the next appointment. Dr. Ardon has reviewed this note and agrees with this plan of care. This note was dictated using voice recognition software and make contain errors or omissions. All injections are used with Lidocaine or Bupivacaine and Depo Medrol.
== END 2024-05-28 23:59 | disposition home or self-care (01) ==
LOC: SC.PAIN 14:04
PROVIDERS: PCP Family Medicine; Visit Provider Nurse Practitioner Family
DX: M46.1 Sacroiliitis, not elsewhere classified (principal); M54.9 Dorsalgia, unspecified
CPT/HCPCS: 99212; G0463

== ENCOUNTER 2024-06-27 10:24 | Outpatient (POV) | payer MEDICARE, OTHER, SELFPAY ==
[2024-06-27 10:37] VITALS: BP 143/96; PULSE 89; RESP 18; O2SAT 95; BMI 30.8
--- NOTE | 2024-06-27 11:30 | A.OFFVIS_ITS ---
[facility] Disclaimer: The information contained in this section may have been updated after the patient was seen, as this information can be updated by other users. Medical History Otitis media Acute bronchitis Chest pain Fatigue SOB (shortness of breath) Family History Other Unknown family medical history Social History Smoking Status: Never smoker alcohol intake: never substance use type: denies use current occupational status: other Travel in the last 8 weeks: None household members: family housing: house caffeine: Yes PM Subjective & Objective Subjective Subjective:: Patient is a pleasant 63-year-old female who presents today for 1 month follow- up. Today she rates her pain a 0 out of 10. She states she is continued to do well from her last visit. Patient did have her left SI injected in April that did provide 100% relief and is still doing well. Patient does state from her last visit that she did not end up getting the baclofen called in. She states that she tried calling up here however no one ever called back from her voicemail. She denies any other changes. Her Dariel has been reviewed and is appropriate. Review of Systems: General: No recent weight changes, no fever, no sleep disturbances Respiratory: No cough, no shortness of air, no recurring pulmonary infections Cardiovascular/peripheral vascular: No chest pain, no palpitations, no edema, no shortness of breath Gastrointestinal: No new onset incontinence, normal bowel movements reported Genitourinary: No new onset incontinence Musculoskeletal: Low back pain Psychiatric: [Normal mood/affect] Neurological: [Denies weakness in extremities], [denies balance issues] Pain at rest (0-10 scale): 0 Objective Objective:: Physical Exam: General: Alert and oriented x3, no acute distress, pleasant and cooperative Lungs: Respirations even and unlabored, symmetrical chest expansion Eyes: PERRL Musculoskeletal: Flexion and extension of lumbar [spine] somewhat guarded secondary to pain, [antalgic gait noted] Neurological: Speech clear, no gross sensory deficit Has patient had previous pain injection?: No Conservative treatment options previously tried: Home exercise plan Length of treatment: Longer than 12 weeks Meds Home Medications and Allergies Home Medications ?Medication ?Instructions ?Recorded ?Confirmed ?Type aspirin 81 mg tablet,delayed See Rx Instructions .Route 04/27/23 06/27/24 Rx release .COMPLEX #90 tabs potassium chloride 20 mEq 20 meq PO DAILY #90 tabs 04/27/23 06/27/24 Rx tablet,extended release(part/cryst) (Klor-Con M) levothyroxine 112 mcg tablet See Rx Instructions .Route 05/11/23 06/27/24 Rx .COMPLEX #90 tabs atorvastatin 20 mg tablet 20 mg PO DAILY Cholesterol #90 tabs 04/30/24 06/27/24 Rx cyclobenzaprine 5 mg tablet 5 mg PO DAILY Muscle relaxers for 04/30/24 06/27/24 History back/hip furosemide 40 mg tablet 40 mg PO DAILY SWELLING #90 tabs 04/30/24 06/27/24 Rx nebivolol 5 mg tablet (Bystolic) 5 mg PO DAILY #90 tabs 04/30/24 06/27/24 Rx tramadol 50 mg tablet 50 mg PO DAILY PRN For pain, hip 04/30/24 06/27/24 History and back naproxen 500 mg tablet See Rx Instructions .Route 06/04/24 06/27/24 Rx .COMPLEX #60 tabs New Prescriptions to Start Prescriptions: Allergies Allergy/AdvReac Type Severity Reaction Status Date / Time No Known Allergies Allergy Verified 05/28/24 14:11 Assessment and Plan *Assessment and plan (1) Sacroiliitis: Status: Acute Category: Medical Code(s): M46.1 - Sacroiliitis, not elsewhere classified Plan Patient is still doing well following her SI injection and does not require any additional injection therapy. I will send in the baclofen and provide a 1 month supply of this medication. Patient will return to clinic in 3 months for reevaluation of symptoms and plan of care. Patient has been instructed to contact the clinic with any concerns before the next appointment. Dr. Ardon has reviewed this note and agrees with this plan of care. This note was dictated using voice recognition software and make contain errors or omissions. All injections are used with Lidocaine or Bupivacaine and Depo Medrol.
== END 2024-06-27 23:59 | disposition home or self-care (01) ==
PROVIDERS: PCP Family Medicine; Visit Provider Nurse Practitioner Family
DX: M46.1 Sacroiliitis, not elsewhere classified (principal)
CPT/HCPCS: 99212; G0463

== ENCOUNTER 2024-09-06 10:47 | Outpatient (CLI) | payer MEDICARE, OTHER, SELFPAY ==
[2024-09-06 18:42] LABS: Basophils % 0.8 % (0.1-2.0); Eosinophils # 0.1 K/mm3 (0.0-0.4); Hematocrit 42.4 % (37.0-47.0); Hemoglobin 13.7 g/dL (12.2-16.2); Lymphocytes # 1.6 K/mm3 (0.7-4.5); Lymphocytes % 33.3 % (10-50); Mean Corpuscular HGB Conc 32.3 g/dL (31.8-35.4); Mean Corpuscular Hemoglobin 29.7 pg (27.0-31.2); Mean Corpuscular Volume 91.8 fl (81-99); Monocytes # 0.4 K/mm3 (0.1-1.0); Monocytes % 7.6 % (1.7-9.3); Neutrophils # 2.7 K/mm3 (1.8-7.8); Neutrophils % 56.1 % (37.0-80.0); Platelet Count 224 K/mm3 (142-424); Red Blood Count 4.62 M/mm3 (4.20-5.40); White Blood Count 4.9 K/mm3 (4.8-10.8)
[2024-09-06 18:53] LABS: Hemoglobin A1C 5.8 % (4.0-6.0)
[2024-09-06 19:12] LABS: Alanine Aminotransferase 29 U/L (12-78); Albumin Level 4.7 g/dl (3.5-5.0); Albumin/Globulin Ratio 1.7 (1.1-1.8); Alkaline Phosphatase 103 U/L (38-126); Aspartate Amino Transferase 37 U/L (14-36); Bilirubin,Total 0.5 mg/dl (0.2-1.3); Blood Urea Nitrogen 18 mg/dl (7-17); Calcium 9.8 mg/dl (8.4-10.2); Carbon Dioxide 27 mmol/L (22.0-30.0); Chloride 101 mmol/L (98-107); Chol/HDL Ratio 5.9 (1-3.5); Cholesterol 190 mg/dl (140-200); Estimated Glomerular Filt Rate 84 ml/min (>60); GFR (African American) 102 ML/MIN (>60); Globulin 2.8 g/dL (1.3-3.2); Glucose 97 mg/dl (74-100); HDL Cholesterol 32 mg/dl (40-60); Sodium 140 mmol/L (136-145); Total Protein,Serum 7.5 g/dl (6.3-8.2); Triglycerides 356 mg/dl (30-150); VLDL Cholesterol 71 mg/dL (0-40)
[2024-09-06 19:13] LABS: Anion Gap 16.3 mEq/L (5-15); Potassium 4.3 mmoL/L (3.5-5.1)
[2024-09-06 19:42] LABS: Thyroid Stimulating Hormone 1.29 uIU/mL (0.465-4.68)
[2024-09-06 20:48] LABS: HIV Combo NEGATIVE (Negative)
[2024-09-08 06:10] LABS: HCV Ab Non Reactive (Non Reactive)
== END 2024-09-06 23:59 | disposition home or self-care (01) ==
LOC: LAB.DROPOF 09-08 08:33
PROVIDERS: PCP Family Medicine; Visit Provider Family Medicine
DX: Z11.59 Encounter for screening for other viral diseases (principal); D72.819 Decreased white blood cell count, unspecified; R53.83 Other fatigue; E78.5 Hyperlipidemia, unspecified; R73.09 Other abnormal glucose
CPT/HCPCS: 80053; 80061; 83036; 84443; 85025; 86803; 87389

== ENCOUNTER 2024-09-24 10:14 | Outpatient (POV) | payer MEDICARE, OTHER, SELFPAY ==
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
[2024-09-24 10:47] VITALS: BP 146/82; PULSE 74; RESP 16; O2SAT 98; BMI 31.5
== END 2024-09-24 23:59 | disposition home or self-care (01) ==
LOC: SC.PAIN 10:15
PROVIDERS: PCP Family Medicine; Visit Provider Nurse Practitioner Family
DX: M46.1 Sacroiliitis, not elsewhere classified (principal)
CPT/HCPCS: 99212; G0463

== ENCOUNTER 2024-10-05 16:37 | Outpatient (CLI) | payer MEDICARE, OTHER, SELFPAY ==
[2024-10-05 17:54] LABS: Alanine Aminotransferase 26 U/L (12-78); Albumin Level 4.7 g/dl (3.5-5.0); Alkaline Phosphatase 80 U/L (38-126); Anion Gap 14.4 mEq/L (5-15); Aspartate Amino Transferase 31 U/L (14-36); Bilirubin,Total 0.2 mg/dl (0.2-1.3); Blood Urea Nitrogen 26 mg/dl (7-17); Calcium 9.6 mg/dl (8.4-10.2); Carbon Dioxide 28 mmol/L (22.0-30.0); Chloride 104 mmol/L (98-107); Estimated Glomerular Filt Rate 84 ml/min (>60); GFR (African American) 102 ML/MIN (>60); Globulin 2.3 g/dL (1.3-3.2); Glucose 95 mg/dl (74-100); Potassium 4.4 mmoL/L (3.5-5.1); Sodium 142 mmol/L (136-145)
[2024-10-05 18:43] LABS: Vitamin B12 661 pg/mL (239-931)
== END 2024-10-05 23:59 | disposition home or self-care (01) ==
LOC: LAB 16:40
PROVIDERS: PCP Family Medicine; Visit Provider Specialist
DX: G31.84 Mild cognitive impairment of uncertain or unknown etiology (principal); Z68.34 Body mass index [BMI] 34.0-34.9, adult; E66.9 Obesity, unspecified
CPT/HCPCS: 80053; 82607

== ENCOUNTER 2024-10-09 14:10 | Outpatient (CLI) | payer MEDICARE, OTHER, SELFPAY ==
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
[2024-10-09] MEDS: SODIUM CHLORIDE 0.9% 10ML SYR (RAD ONLY) 10 ML IV (15:03)
[2024-10-09] MEDS: GADOTERIDOL INJ 20ML SYRINGE 16 ML IV (15:03)
== END 2024-10-09 23:59 | disposition home or self-care (01) ==
LOC: RAD 14:11
PROVIDERS: PCP Family Medicine; Visit Provider Specialist
DX: G31.84 Mild cognitive impairment of uncertain or unknown etiology (principal); R51.9 Headache, unspecified
CPT/HCPCS: 70553; A9576

== ENCOUNTER 2025-03-28 09:53 | Outpatient (POV) | payer MEDICARE, OTHER, SELFPAY ==
--- OUTSIDE RECORDS SUMMARY | 2025-03-25 15:26 | XMS_ITS | Encounter Summary ---
[facility] Address [address] [place] [address] Care Team Providers Care Trial Lawyer Name Role Phone Lawanda Vale MD Primary Care Provider [phone] Reason for Referral * Diagnostic Imaging (Routine) - Closed Specialty Diagnoses / Procedures Referred By Kristian oseguera Referred To Contact Radiology Diagnoses Encounter for screening mammogram for malignant neoplasm of breast Procedures Mammo Screening Digital Tomosynthesis Bilateral With Lawanda Herr MD [address] [place] [address] Phone: tel: fax: Referral ID Status Reason Start Date Expiration Date Visits Re quested Visits Authorized Closed 02/21/2025 05/23/2026 1 1 Reason for Visit * Diagnostic Imaging (Routine) - Closed Specialty Diagnoses / Procedures Referred By Kristian oseguera Referred To Contact Radiology Diagnoses Encounter for screening mammogram for malignant neoplasm of breast Procedures Mammo Screening Digital Tomosynthesis Bilateral With Lawanda Herr MD [address] [place] [address] Phone: tel: fax: Referral ID Status Reason Start Date Expiration Date Visits Re quested Visits Authorized Closed 02/21/2025 05/23/2026 1 1 Encounter Details Date Type Department Care Team (Late st Contact Info) Description 03/25/2025 3:26 PM EDT - 03/25/2025 11:59 PM EDT Hospital Encounter [facility] [address] [place] [address] Lawanda Vale MD [address] [place] [address] Encounter for screening mammogram for malignant neoplasm of breast Discharge Disposition: Home or Self Care Social History Tobacco Use Types Packs/Day Years Used Date Smoking Tobacco: Never Alcohol Use Standard Drinks/Week Comments Never 0 (1 standard drink = 0.6 oz pur e alcohol) AUDIT-C Answer Date Recorded Q1: How often do you have a drink containing alc ohol? Never 06/13/2020 Average Number of Drinks Not on file 020 Frequency of Binge Drinking Not on file 05/2020 Comments No Sex and Gender Information Value Date Recorded Sex Assigned at Not on file Legal Sex Female 11:11 AM EDT Gender Identity Not on file Sexual Orientation Not on file Occupation Industry Job Start Date Job End Date HOMEMAKER Not on file Not on file Not on file documented as of this encounter Medications at Time of Discharge atorvastatin (LIPITOR) 20 MG tablet Take 1 tablet by mouth Daily. 05/21/2020 Bystolic 5 MG tablet 07/07/2020 EQ Aspirin Adult Low Dose 81 MG EC tablet Take 1 tablet by mouth Daily. 04/16/2020 furosemide (LASIX) 40 MG tablet Take 1 tablet by mouth Daily. levothyroxine (SYNTHROID, LEVOTHROID) 112 MCG tablet Take 1 tablet by mouth Daily. 04/30/2020 multivitamin (THERAGRAN) tablet tablet Take by mouth Daily. documented as of this encounter Plan of Treatment Upcoming Encounters Date Type Department Care Team (Late st Contact Info) Description 04/17/2025 11:00 AM EDT Ancillary Procedure [facility] [address] [place] [address] 04/17/2025 11:40 AM EDT Office Visit [facility] [address] [place] [address] Lawanda Vale MD [address] [place] [id number] Pending Results Name Type Priority Associated Diagnoses Date /Time Mammo Screening Digital Tomosynthesis Bilateral With CAD Imaging Routine Encounter for screening mammogram for malignant neoplasm of breast 03/25/2025 3:50 PM EDT Scheduled Orders Name Type Priority Associated Diagnoses Orde r Schedule Mammo Screening Digital Tomosynthesis Bilateral With CAD Imaging Routine Encounter for screening mammogram for malignant neoplasm of breast Once for 1 Occurrences starting 03/25/2025 until 03/25/2025 documented as of this encounter Visit Diagnoses Diagnosis Encounter for screening mammogram for malignant neoplasm of breast documented in this encounter Care Teams Trial Lawyer Relationship Specialty Start Date End Date Lawanda Vale MD [address] [address] PCP - General Obstetrics and Gynecology 07/31/19 documented as of this encounter
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
--- OUTSIDE RECORDS SUMMARY | 2025-03-28 09:57 | XMS_ITS | Data Portability ---
Author Organization [facility] Address [address] [facility] [facility] [place] [address] Care Team Providers Care Production Finisher Name Role Phone JESSICA LEMUS Primary Care Provider [phone] Assessment No assessment recorded. Plan of Treatment Reminders Order Date Submit Date Provider Last Modified By Organization Details Last Modified Time Details Appointments None record ed. Lab None record ed. Referral None record ed. Procedures None record ed. Surgeries None record ed. Imaging None record ed. Medication Orders None record ed. Patient TargetsNo targets recorded. Patient InstructionsNo instructions recorded. Reason for Referral None Reported. Results Created Date Observation Date Name Description Value Unit Range Abnormal Flag Note LastModifiedBy Organization Detail LastModifiedTime 03/30/20 24 03/29/2024 MRI, lumba r spine , w/wo contr ast No observ ation record ed. BARCODE Not Available 2023 11:52:54 03/30/20 24 03/29/2024 MRI, hip, w/wo contr ast No observ ation record ed. BARCODE Not Available 2023 11:52:55 04/05/20 24 04/04/2024 XR, lumbo sacra l spine , 4 or more view [place] [facility] [address] [place] [address] [facility] [place] [address] Patien t Name: MAYELIN oseguera : [birth year] Patien t Orderi ng Provid er: NINA TIMONE Y EXAM DATE: 2023 EXAM: XR LUMBAR SPINE AP/LAT /FLEX/ EXT HISTOR Y: Low back pain COMPAR MARIO: None. FINDIN GS: There is levocu rvatur e of the lumbar spine. There is grade 1 anteri or listhe sis of L4 on L5. This measur es 11 mm with flexio n and extens ion. There is minima l anteri or margin al spurri ng. There is mild facet arthro sharee. IMPRES KULDEEP: 1. There are mild degene rative change s in the lumbar spine. Interp reted By: Crystal petersen MD Electr on ly Signed By: Crystal petersen MD on 04/05/20 2:58 PM geronimo [facility] Radiology [facility] [address] [place] [address], [phone], 04/06/2024 13:02:47 Result Notes Documentation Provider Name and Address Organization Details Recorded Time Xr, Lumbosacral Spine, 4 Or More View : [address] [address] Patient Name: MAYELIN RAE Patient : 1960 Patient Ordering Provider: NINA MASCORRO EXAM DATE: 04/04/2024 EXAM: XR LUMBAR SPINE AP/LAT/FLEX/EXT HISTORY: Low back pain COMPARISON: None. FINDINGS: There is levocurvature of the lumbar spine. There is grade 1 anterior listhesis of L4 on L5. This measures 11 mm with flexion and extension. There is minimal anterior marginal spurring. There is mild facet arthropathy. IMPRESSION: 1. There are mild degenerative changes in the lumbar spine. Interpreted By: Eduardo Aparicio MD MASCORRO MD [address] [place] [address], [phone], [facility] 04/06/2024 13:02:47 Problems Name Problem SNOMED Code Status Onset Date Resolution Date Notes Provider Name and Address Organization Details Recorded Time Kidney stone 03580542 Active 016 From Automated Load;Provi kanu: Elvin Mazariegos; atus: Active Not Available [facility] 6 07:48:27 Problem Notes None recorded. Medical Equipment None Reported. Allergies No known drug allergies Medications Name Sig Start Date Stop Date Status Note LastModified by Organization Details LastModified Time compound drug active Not Available Not Available Not Available furosemide 40 mg tablet TAKE 1 TABLET BY MOUTH ONCE DAILY FOR SWELLING active Not Available Not Available No t Available methocarba mol 500 mg tablet TAKE 2 TABLETS BY MOUTH EVERY 6 HOURS NEEDED FOR PAIN active Not Available Not Available No t Available atorvastat in 20 mg tablet TAKE 1 TABLET BY MOUTH ONCE DAILY FOR CHOLESTER OL active Not Available Not Available No t Available sumatripta n 100 mg tablet As needed active Frequency : prn;Medic ation Descripti on: sumatript an; Route:ora l; refills:0 Not Available Not Available Not Available Synthroid 125 mcg tablet Daily active Frequency : daily;Med ication Descripti on: levothyro xine; Dosage:1; Route:ora l; refills:0 ; Quantity: 30 tablet Not Available Not Available Not Available prednisone 20 mg tablet TAKE 1 TABLET BY MOUTH TWICE DAILY FOR 5 DAYS active Not Available Not Available No t Available Super B Complex tablet active Medicatio n Descripti on: multivita min; Route:ora l; refills:0 ; Quantity: 30 tablet Not Available Not Available Not Available aspirin 81 mg tablet,del ayed release TAKE 1 TABLET BY MOUTH ONCE DAILY active Not Available Not Available No t Available tramadol 50 mg tablet TAKE 1 TABLET BY MOUTH EVERY 6 HOURS NEEDED active Not Available Not Available No t Available triamcinol one acetonide 0.1 % topical ointment APPLY OINTMENT TOPICALLY TO AFFECTED AREA TWICE DAILY active Not Available Not Available No t Available hydrochlor othiazide 25 mg tablet active Medicatio n Descripti on: hydrochlo rothiazid e; Route:ora l; refills:0 ; Quantity: 30 tablet Not Available Not Available Not Available fluticason e propionate 50 mcg/actuat ion nasal spray,susp ension USE 1 SPRAY(S) IN EACH NOSTRIL ONCE DAILY active Not Available Not Available No t Available loratadine 10 mg tablet TAKE 1 TABLET BY MOUTH ONCE DAILY active Not Available Not Available No t Available naproxen 500 mg tablet TAKE 1 TABLET BY MOUTH EVERY 12 HOURS NEEDED FOR PAIN active Not Available Not Available No t Available levothyrox ine 112 mcg tablet TAKE 1 TABLET BY MOUTH ONCE DAILY FOR THYROID active Not Available Not Available No t Available Benicar 20 mg tablet Daily active Duration: 30 days;Freq uency: daily;Med ication Descripti on: olmesarta n; Dosage:1; Route:ora l; refills:0 ; Quantity: 30 tablet Not Available Not Available Not Available coenzyme Q10 100 mg capsule active Medicatio n Descripti on: ubiquinon e; Route:ora l; refills:0 Not Available Not Available Not Available cyclobenza aileen 5 mg tablet Take by oral route for 30 days. 2023 active Not Available Not Available Not Avai lable Vitamin D3 active Medicatio n Descripti on: cholecalc iferol; Route:ora l; refills:0 Not Available Not Available Not Available nebivolol 5 mg tablet TAKE 1 TABLET BY MOUTH ONCE DAILY active Not Available Not Available No t Available Probiotic Formula 10 billion cell(2 billion ea) capsule active Medicatio n Descripti on: bifidobac terium-la ctobacill us; Route:ora l; refills:0 Not Available Not Available Not Available Vitamin B12 active Medicatio n Descripti on: cyanocoba joyce; refills:0 Not Available Not Available Not Available Vitals Date Recorded Body height Body mass index (BMI) Body weight Systolic And Diastolic Provider Name and Address Organization Details Last Updated DateTime 04/04/2024 154.94 cm 32.3 kg/m2 11267.3 g 134/84 mm[Hg] [facility] 04/04/2024 13:38:48 Date Recorded Body height Body mass index (BMI) Body weight Systolic And Diastolic Provider Name and Address Organization Details Last Updated DateTime 06/04/2024 154.94 cm 32.3 kg/m2 21272.3 g 124/84 mm[Hg] [facility] 06/04/2024 09:42:27 Social History None recorded. Functional Status None recorded. Mental Status None recorded. Family History Relationship Description Onset Age of this Age Resolved Age Notes LastModified by Organization Details LastModified Time Father No current problems or disability [email or web address] Not available 0 04/04/2024 13:39:39 Mother No current problems or disability [email or web address] Not available 0 04/04/2024 13:39:39 Medical History No medical history recorded. Gynecological HistoryNo gynecological history recorded. Obstetrics History GPAL:G 0 P 0 0 0 0 Past Encounters Encounter ID Performer Location Encounter Start Date Encounter Closed Date Diagnosis/Indication Diagnosis SNOMED-CT Code Diagnosis ICD10 Code Diagnosis Note [id number] NINA MASCORRO MD [facility] [address] [place] [address] 04/04/2024 12:59:57 04/05/2024 04:30:32 Lumbar radiculopathy [id number] M54.16 I discussed her radiograph ic findings. I would like her to complete the full course of physical therapy as well as receive a consultati on for lumbar epidural injection. I did state her radiograph ic findings are severe and she will likely require surgery at some stage. She would like to exhaust all conservati ve measures first. We will obtain lumbar flexion xrays as well as try some flexeril 5 mg one to two every 8 hours as needed for muscle spasms. She will see us again in 8 weeks time to monitor care. I have also instructed her to see us soon if any new issues should arise. She voiced her understand ing and thanked me for seeing her. [id number] NINA MASCORRO MD [facility] [address] [place] [address] 06/04/2024 09:14:49 06/05/2024 04:29:52 Lumbar radiculopathy [id number] M54.16 Patient states that after conservati ve measures her pain has subsided in her low back and lower extremity. She is very happy with the results. She states she does have a low dull pain but this is tolerable. She will call us in the future if the pain progresses or she can no longer handle the pain. I have answered all her questions. She is happy with the management plan. Health Concerns Section Related Observation LastModified by Organization Detai ls LastModified Time None Recorded Concern Status LastModified by Organization Details LastModified Time None Recorded Advance Directives Directive None Recorded Payers Insurance Date Sequence Insurance Name Policy Number Policy Caro Covered Member ID Caro Member ID Guarantor Name 01/28/2025 1 MEDICARE[place]MEDICARE[place] Mayelin Peterenship [id number] Mayelin Peterenship 06/05/2024 2 [employer] (MEDICARE SUPPLEMENT) Mayelin Rae [id number] Mayelin Rae Notes Date Note Type Note Provider Name and Address Organization Details Recorded Time 04/04/2024 text/html Patient is a joseph y marla 63-year-old woman here today in neurosurgical consultation for low back pain and left hip pain. She reports 2 history of left hip pain after picking up soil and turning to scatter it. Since then, she has had intense left hip pain. She has done two sessions of physical therapy. She has numbness in left lateral hip that persists along with pain. She reports its constant but fluctuates in severity. She has been prescribed methocarbamol as well as nsaid. Her pain continues. She underwent an MRI of lumbar spine and hip and here today for results. MRI of lumbar spine was personally reviewed by myself which demonstrates L4-5 spondylolisthesis with severe neuroforaminal stenosis and central canal stenosis NINA MASCORRO MD [facility] [place], [address], [facility] 04/04/2024 16:08:40 06/04/2024 text/html Patient is a joseph y marla 64-year-old woman with an L4-5 spondylolisthesis who we had referred for conservative therapy. We had given her a trial of physical therapy and referred her on to pain management. She states the physical therapy had provided her with benefit and she has been released. She did have an SI joint injection and she states that helped considerably. She states she does have some continued pain in her low back but is able to do quite a lot more than she was prior to the injection. She states she can manage with this pain and she is tolerating it quite well. Imaging: I personally reviewed her lumbar flexion-extension x-rays which demonstrate L4-5 spondylolisthesis NINA MASCORRO MD [address] [place], [address], [facility] 06/04/2024 10:00:57 OBGyn Episode No OBEpisode recorded.
--- OUTSIDE RECORDS SUMMARY | 2025-03-28 09:57 | XMS_ITS | Clinical Summary ---
[facility] Address [address] [place] [id number] Care Team Providers Care Health Technician Name Role Phone Lawanda Vale MD Primary Care Provider Allergies No known active allergies Medications EQ Aspirin Adult Low Dose 81 MG EC tablet Take 1 tablet by mouth Daily. 04/16/2020 Active atorvastatin (LIPITOR) 20 MG tablet Take 1 tablet by mouth Daily. 05/21/2020 Active levothyroxine (SYNTHROID, LEVOTHROID) 112 MCG tablet Take 1 tablet by mouth Daily. 04/30/2020 Active Bystolic 5 MG tablet 07/07/2020 Active multivitamin (THERAGRAN) tablet tablet Take by mouth Daily. Active furosemide (LASIX) 40 MG tablet Take 1 tablet by mouth Daily. Active Active Problems No known active problems Encounters Date Type Department Care Team Description 03/27/2025 3:20 PM EDT Office Visit [facility] [address] [place] [address] Lawanda Vale MD Women's annual routine gynecological examination (Primary Dx); Cystocele with prolapse; Encounter for fitting and adjustment of pessary; PMB (postmenopausal bleeding); Other specified menopausal and perimenopausal disorders 03/27/2025 Travel 03/25/2025 3:26 PM EDT - 03/25/2025 11:59 PM EDT Hospital Encounter [facility] [address] [id number] Lawanda Vale MD Encounter for screening mammogram for malignant neoplasm of breast Discharge Disposition: Home or Self Care 03/25/2025 Travel from Last 3 Months Family History Medical History Relation Name Comments Diabetes Father Garth Breast cancer Maternal Aunt Ovarian cancer Neg Hx Relation Name Status Comments Father Garth Maternal Aunt Other Social History Tobacco Use Types Packs/Day Years Used Date Smoking Tobacco: Never Tobacco Cessation:Counseling Given: Not Answered Alcohol Use Standard Drinks/Week Comments Never 0 [...] file Not on file Not on file Last Filed Vital Signs Vital Sign Reading Time Taken Comments Blood Pressure 138/88 03/27/2025 3:47 PM EDT Pulse - - Temperature - - Respiratory Rate - - Oxygen Saturation - - Inhaled Oxygen Concentration - - Weight 75.3 kg (166 lb) 03/27/2025 3:47 PM EDT Height 154.9 cm (5' 1 ) 03/27/2025 3:47 PM EDT Body Mass Index 31.37 03/27/2025 3:47 PM EDT Plan of Treatment Upcoming Encounters Date Type Department Care Team (Late st Contact Info) Description 04/17/2025 11:00 AM EDT Ancillary Procedure [facility] [address] [place] [address] 04/17/2025 11:40 AM EDT Office Visit [facility] [address] [place] [address] Lawanda Vale MD [address] [facility] [address] [place] [id number] Health Maintenance Due Date Last Done Comments DXA SCAN 1958 COLOGUARD 12/09/2003 COLON CANCER SCREENING 5 YEA R SIGMOIDOSCOPY 12/09/2003 COLONOSCOPY 12/09/2003 COLORECTAL CANCER SCREENING 12/09/2003 CT COLONOGRAPHY 12/09/2003 FECAL OCCULT BLOOD TEST 12/09/2003 FIT Testing (1 year) 12/09/2003 Pneumococcal Vaccine 50+ (1 of 1 - PCV) 2008 ZOSTER VACCINE (1 of 2) 2008 TDAP/TD VACCINES (2 - Tdap) 02/16/2011 02/16/2001 ANNUAL WELLNESS VISIT 06/13/2020 HEPATITIS C SCREENING 06/13/2020 COVID-19 Vaccine (4 - 2023-2 5 season) 2024 07/20/2021, 12/17/2020, 11/19/2020 INFLUENZA VACCINE 06/05/2025 MAMMOGRAM 10/27/2025 10/27/2023, 08/06, 07/20/2021, Additional history exists Procedures Procedure Name Priority Date/Time Associated Diagnosis Comments MAMMO SCREENING DIGITAL TOMOSYNTHESIS BILATERAL W CAD Routine 10/27/2023 1:57 PM EST Visit for screening mammogram from Last 3 Months or Most Recently Relevant to Health Maintenance Results * Mammo Screening Digital Tomosynthesis Bilateral With CAD (10/27/2023 1:57 PM EST) Anatomical Region Laterality Modality Breast N/A Mammography 10/28/2023 2:03 PM EST Impressions 10/28/2023 2:30 PM EST Negative bilateral mammogram. RECOMMENDATION: Continue annual screening mammography. BI-RADS CATEGORY 1, NEGATIVE. CAD was utilized. The standard false-negative rate of mammography is between 10% and 25%. Complex patterns or increased breast density will markedly elevate the false-negative rate of mammography. A letter, in lay terminology, with the results of this exam will be mailed to the patient. This report was finalized on 10/28/2023 2:[address] Brian Rose MD. Narrative 10/28/2023 2:30 PM EST DIGITAL SCREENING MAMMOGRAM WITH TOMOSYNTHESIS HISTORY: Screening Mammography. Low dose full field digital breast tomosynthesis imaging was performed with 2D and 3D acquisitions consisting of bilateral CC and MLO views. Examination is compared to prior examination dating back to 01/17/2018. Examination is read in conjunction with computer aided detection. FINDINGS: There are scattered areas of fibroglandular density. No suspicious masses, microcalcifications or areas of architectural distortion are present. Lawanda Vale MD IMG MAMMOGRAPHY ORDERABLES Final Result from Last 3 Months or Most Recently Relevant to Health Maintenance Insurance MEDICARE A & B Member Subscriber Plan / Payer ( fective 2023-Present) Name:Margaret Rae Member ID:[id number] Relation to Subscriber:Self Name:Margaret Rae Subscriber ID:[id number] Payer ID:[id number] Group ID:Not on file Type:Not on file Address: [facility] [id number] [address] Care Teams Health Technician Relationship Specialty Start Date End Date Lawanda Vale MD [address] [facility] [address] [place] [address] PCP - General Obstetrics and Gynecology 07/31/19
--- OUTSIDE RECORDS SUMMARY | 2025-03-28 09:57 | XMS_ITS | Encounter Summary ---
[facility] [address] [place] [address] Care Team Providers Care Parachute Crown Sewer Name Role Phone Lawanda Vale MD Primary Care Provider [phone] Encounter Details Date Type Department Care Team (Latest Contact Info) Description 03/25/2025 Travel Social History Tobacco Use Types Packs/Day Years [...] on file documented as of this encounter Plan of Treatment Upcoming Encounters Date Type Department Care Team (Late st Contact Info) Description 04/17/2025 11:00 AM EDT Ancillary Procedure [facility] [address] [place] [address] 04/17/2025 11:40 AM EDT Office Visit [facility] [address] [place] [address] Lawanda Vale MD [address] [facility] [address] [place] [address] documented as of this encounter Visit Diagnoses Not on filedocumented in this encounter Care Teams Parachute Crown Sewer Relationship Specialty Start Date End Date Lawanda Vale MD [address] [facility] [address] [place] [address] PCP - General Obstetrics and Gynecology 07/31/19 documented as of this encounter
--- OUTSIDE RECORDS SUMMARY | 2025-03-28 09:57 | XMS_ITS | Encounter Summary ---
[facility] [address] [place] [address] Care Team Providers Care Air Export Coordinator Name Role Phone Lawanda Vale MD Primary Care Provider [phone] Encounter Details Date Type Department Care Team (Latest Contact Info) Description 03/27/2025 Travel Social History Tobacco Use Types Packs/Day [...] Description 04/17/2025 11:00 AM EDT Ancillary Procedure [facility] [address] [place] [address] 04/17/2025 11:40 AM EDT Office Visit [facility] [address] [place] [address] Lawanda Vale MD [address] [facility] [address] [place] [address] documented as of this encounter Visit Diagnoses Not on filedocumented in this encounter Care Teams Air Export Coordinator Relationship Specialty Start Date End Date Lawanda Vale MD [address] [facility] [address] [place] [address] PCP - General Obstetrics and Gynecology 07/31/19 documented as of this encounter
--- NOTE | 2025-03-28 10:19 | A.OFFVIS_ITS ---
[facility] Disclaimer: The information contained in this section may have been updated after the patient was seen, as this information can be updated by other users. Medical History Otitis media Acute bronchitis Chest pain Fatigue SOB (shortness of breath) Surgical History Hx of left knee surgery Hx of right knee surgery Hx of cholecystectomy Hx of appendectomy Family History Other Cancer Social History Smoking Status: Never smoker alcohol intake: never substance use type: denies use current occupational status: other Travel in the last 8 weeks?: None household members: family housing: house caffeine: Yes PM Subjective & Objective Subjective Subjective:: Patient is a pleasant 64-year-old female who presents today for 6-month follow- up. Today she rates her pain a 0 out of 10. She denies any new falls or changes from our last appointment. Patient did previously have a SI injection along the left side in April of last year that provided 100% relief and is continued to do well. Patient states she has not had any flareups. Patient was also prescribed compounded cream and baclofen 5 mg from our office however she has not even needed to use these. Patient denies any other changes. Her Dariel has been reviewed and is appropriate. Review of Systems: General: No recent weight changes, no fever, no sleep disturbances Respiratory: No cough, no shortness of air, no recurring pulmonary infections Cardiovascular/peripheral vascular: No chest pain, no palpitations, no edema, no shortness of breath Gastrointestinal: No new onset incontinence, normal bowel movements reported Genitourinary: No new onset incontinence Musculoskeletal: Low back pain Psychiatric: [Normal mood/affect] Neurological: [Denies weakness in extremities], [denies balance issues] Pain at rest (0-10 scale): 0 Objective Objective:: Physical Exam: General: Alert and oriented x3, no acute distress, pleasant and cooperative Lungs: Respirations even and unlabored, symmetrical chest expansion Eyes: PERRL Musculoskeletal: Flexion and extension of lumbar [spine] within normal limits Neurological: Speech clear, no gross sensory deficit Has patient had previous pain injection?: No Conservative treatment options previously tried: Home exercise plan Length of treatment: Longer than 12 weeks Meds Home Medications and Allergies Home Medications ?Medication ?Instructions ?Recorded ?Confirmed ?Type aspirin 81 mg tablet,delayed See Rx Instructions .Rout e 04/27/23 01/01/25 Rx release .COMPLEX #90 tabs atorvastatin 20 mg tablet 20 mg PO DAILY Cholesterol # 90 tabs 04/30/24 01/01/25 Rx furosemide 40 mg tablet 40 mg PO DAILY SWELLING #90 tabs 04/30/24 01/01/25 Rx nebivolol 5 mg tablet (Bystolic) 5 mg PO DAILY #90 tab s 04/30/24 01/01/25 Rx levothyroxine 112 mcg tablet See Rx Instructions .Rout e 03/22/25 Rx .COMPLEX #90 tabs New Prescriptions to Start Prescriptions: Allergies Allergy/AdvReac Type Severity Reaction Status Date / Time No Known Allergies Allergy Verified 10/08/24 10:28 Assessment and Plan *Assessment and plan (1) Sacroiliitis: Status: Acute Category: Medical Code(s): M46.1 - Sacroiliitis, not elsewhere classified Plan Patient has continued to get significant relief from her SI injection into April 2024 and does not require any additional injection therapy at this time. Patient will return to clinic in 1 year for reevaluation of symptoms and plan of care. Patient has been instructed to contact the clinic with any concerns before the next appointment. Dr. Ardon has reviewed this note and agrees with this plan of care. This note was dictated using voice recognition software and make contain errors or omissions. All injections are used with Lidocaine, Bupivacaine and dexamethasone. Occasionally urine drug screen is needed to verify patient's compliance with our office pain contract. This is ordered based off specific treatments related to chronic pain with the potential to abuse certain medications.
[2025-03-28 11:05] VITALS: BP 140/79; PULSE 76; RESP 12; O2SAT 98; BMI 30.6
== END 2025-03-28 23:59 | disposition home or self-care (01) ==
LOC: SC.PAIN 09:54
PROVIDERS: PCP Family Medicine; Visit Provider Nurse Practitioner Family
DX: M46.1 Sacroiliitis, not elsewhere classified (principal); Z79.899 Other long term (current) drug therapy
CPT/HCPCS: 99212; G0463